=== PATIENT | male | born 1930 | race Caucasian/White ===

== ENCOUNTER 2017-02-22 07:07 | Inpatient (IN) ==
[2017-02-22] MEDS ORDERED: ASPIRIN 325 MG TABLET PO STA (07:25)
[2017-02-22] MEDS ORDERED: MORPHINE 2 MG/1 ML SYRINGE IV STA (07:25)
[2017-02-22] MEDS ORDERED: MORPHINE 2 MG/1 ML SYRINGE ONE (07:29)
[2017-02-22] MEDS ORDERED: MAGNESIUM SULF RIDER 4 GM in PREMIX 1 EACH IV PRN (10:27)
[2017-02-22] MEDS ORDERED: NITROGLYCERIN SL 0.4 MG TABLET SL ONE (10:27)
[2017-02-22] MEDS ORDERED: POTASSIUM CHLORIDE 20 MEQ TABLET PO PRN (10:27)
[2017-02-22] MEDS ORDERED: MAGNESIUM SULF RIDER 2 GM in PREMIX 1 EACH IV PRN (10:27)
[2017-02-22] MEDS ORDERED: MORPHINE 2 MG/1 ML SYRINGE IV PRN (10:27)
--- NOTE | 2017-02-22 10:27 | Emergency Department Note ---
Xiang Ruiz Manpreet, am scribing for, and in the presence of, Akira Orozco MD 07:28. Ernesto Ruiz Doug C, MD, personally performed the services described in this documentation, ascribed by Gerard Otoole in my presence, and it is both accurate and complete . Arrival - Arrival Chief Complaint: Chest Pain Stated Complaint: transfer from [facility] Mode of Arrival: Ambulatory Limitations: No Limitations Source: Patient, Significant other () Time Seen by Provider: 02/22/17 07:10 - History of Present Illness HPI Narrative: Patient is a 86-year-old white male transferred here from the [facility] for further evaluation of chest pain. Patient states the pain started yesterday around 7 PM but got intense around 3 AM. He went to the emergency room at [facility] around 4 AM this morning. Patient states some pain is sharp right-sided chest pain that is worse with deep breath. He has had a subjective fever at home he was febrile on arrival here. EKG [facility] revealed LVH by voltage criteria with downsloping ST segments in V5 and 6. There is no ST elevation in any lead. He has a slightly elevated troponin of 0.06 prior to transport. Patient tells me he does not have a history of coronary artery disease. According to his he went to [facility] and had clips placed in 1 of his valves. Onset (ago): hour(s) (at 1900 yesterday) Consistency: constant Severity: moderate, severe Severity scale (1-10): 7 Allergies/Adverse Reactions: Allergies Allergy/AdvReac Type Severity Reaction Status Date / Time doxycycline Allergy RASH Verified 02/22/17 07:20 latex Allergy RASH Verified 02/22/17 07:20 Home Medications: Home Medications Medication Instructions Recorded Confirmed Type Aloe Vera 25 mg PO QAM 08/12/16 02/22/17 History Aspirin [Ecotrin] 81 mg PO QAM 08/12/16 02/22/17 History Cyanocobalamin (Vitamin B-12) 1,000 mcg PO BID 08/12/16 02/22/17 History [Vitamin B-12] Fluticasone Propionate [Flonase 1 spray BOTH NARES QAM 08/12/16 02/22/17 History Allergy Relief] Furosemide 60 mg PO TID 08/12/16 02/22/17 History Metoprolol Succinate 25 mg PO QAM 08/12/16 02/22/17 History Montelukast Tab [Singulair Tab] 10 mg PO BEDTIME 08/12/16 02/22/17 History Multivitamin [One Daily] 1 each PO BEDTIME 08/12/16 02/22/17 History Nitroglycerin Sl Tab [Nitrostat] 0.4 mg SL Q5M PRN 08/12/16 02/22/17 History Oxybutynin Chloride [Oxybutynin 15 mg PO BEDTIME 08/12/16 02/22/17 History Chloride ER] Potassium Chloride 40 meq PO QAM 08/12/16 02/22/17 History Rabeprazole Sodium 20 mg PO QAM 08/12/16 02/22/17 History Thyroid,Pork [[place] Thyroid] 30 mg PO QAM 08/12/16 02/22/17 History Albuterol Sulfate 0.83 % RESP TX BID 08/13/16 02/22/17 History Iron 18 mg PO BID 08/13/16 02/22/17 History Lactobacillus Combo No.23 [Tyler 1 tablet PO BID 08/13/16 02/22/17 History Probiotic] Atorvastatin [Lipitor] 20 mg PO BEDTIME 02/22/17 02/22/17 History Isosorbide Mononitrate [Imdur] 30 mg PO QAM 02/22/17 02/22/17 History Review of System - Review of System 12 point system: reviewed and no additional remarkable complaints except as stated - Review of System Constitutional: Absent: chills, diaphoresis, fever Respiratory: Absent: cough, respiratory distress, wheezing Cardiovascular: Present: chest pain, other (Pleuritic chest pain) Gastrointestinal: Absent: abdominal pain, nausea, vomiting, diarrhea Genitourinary male: Absent: dysuria Musculoskeletal: Absent: arm pain, back pain, leg pain, neck pain Skin: Absent: rash, lesions Neurological: Absent: headache, weakness, numbness, paresthesias Psychiatric: Absent: anxiety, depression Endocrine: Absent: fatigue, polydipsia, polyuria Hematological/Lymphatic: Absent: easy bleeding Allergic/Immunologic: Absent: facial swelling Medical,Surgical,& Family Hx - Medical History Cardio: History of: Valvular Heart Disease Neurology: No history of: Seizures - Surgical History Cardiac Surgeries: Sugical HX of: Cardiac Surgery - Family History Family History: Reports;: Family Heart Disease - Social History Smoking Status: Former smoker Exam Vital Signs: Vital Signs Temperature 100.6 F H 02/22/17 07:07 Pulse Rate 89 02/22/17 07:07 Respiratory Rate 18 02/22/17 07:07 Blood Pressure 148/82 02/22/17 07:07 O2 Sat by Pulse Oximetry 98 02/22/17 07:11 - General General appearance: alert - Head Head exam: Present: atraumatic, normocephalic, normal inspection - Eye Eye exam: Present: normal appearance, PERRL, EOMI - ENT ENT exam: Present: normal exam, normal oropharynx, mucous membranes moist, TM's normal bilaterally - Neck Neck exam: Present: normal inspection, full ROM, trachea midline - Chest Chest inspection: Present: normal inspection, symmetric chest wall rise - Respiratory Respiratory exam: Present: normal lung sounds bilaterally, other (Pleuritic sporadic respirations). Absent: respiratory distress - Cardiovascular Cardiovascular exam: Present: regular rate, normal rhythm, normal heart sounds - Abdominal Exam Abdominal exam: Present: soft, tenderness (RUQ tenderness), normal bowel sounds - Extremities Exam Extremities exam: Present: normal inspection, full ROM - Back Exam Back exam: Present: normal inspection, full ROM - Neurological Exam Neurological exam: Present: alert, oriented X3, CN II-XII intact, reflexes normal - Psychiatric Psychiatric exam: Present: normal affect, normal mood - Skin Skin exam: Present: warm, dry, intact, normal color. Absent: pallor Course Course Narrative: Patient's clinical presentation, laboratory and radiograph findings were discussed with Dr. Riddle. Patient will be admitted to his services on the telemetry unit and cardiac isoenzymes continued. Results - Labs Lab Results: I have reviewed the patients labs Labs: Laboratory Tests 02/22/17 07:36 D-Dimer, Quantitative 1.0 Laboratory Tests 02/22/17 07:36 Troponin I 0.049 H Laboratory Tests 02/22/17 07:36 B-Natriuretic Peptide 2408 H - Diagnostic Findings Procedure: Chest x-ray: report reviewed by me (Cardiomegaly and mitral valve clips) Disposition Clinical Impression: Chest pain Case discussed with: patient, patient's family Disposition: Still a Patient Condition: Guarded Time of Disposition: 10:26
[2017-02-22] MEDS ORDERED: SODIUM CHLORIDE 0.45% 1,000 ML IV SCH (10:30)
[2017-02-22] MEDS ORDERED: NITROGLYCERIN SL 0.4 MG TABLET SL PRN ×2 (10:36→17:38)
--- NOTE | 2017-02-22 10:39 | Order Completion Report ---
See report scanned to EMR
--- NOTE | 2017-02-22 11:55 | Order Completion Report ---
See report scanned to EMR
--- NOTE | 2017-02-22 12:10 | Ultrasound Report ---
History: Chest pain. Evaluate for DVT Date: 02/22/2017 Study: Bilateral lower extremity color-flow venous Doppler study Comparison exam: No previous Color Doppler, wave form analysis, and compression analysis of the deep veins of both lower extremities from the common femoral vein level through the popliteal vein level shows that the veins are readily compressible. There is no abnormal intraluminal material to suggest thrombus. Waveform analysis is unremarkable. Ultrasound images were captured and archived Impression: No evidence of acute DVT PROCEDURE INTERPRETED AT [facility] DEPARTMENT OF RADIOLOGY Final Report Signed by: Dr. Sasha Kasper
[2017-02-22] MEDS: NITROGLYCERIN 2% OINT 1 INCH/GM PACK TOP SCH ×2 (12:58→18:54)
--- NOTE | 2017-02-22 13:56 | Order Completion Report ---
See report scanned to EMR
[2017-02-22] MEDS ORDERED: ENOXAPARIN 30 MG/0.3 ML SYRINGE SUBCUT SCH (14:30)
--- NOTE | 2017-02-22 17:46 | Cardiology Consult Note ---
Assessment and Plan - Time spent with patient Time spent with patient: Greater than 30 minutes (1) Pleuritic chest pain Status: Acute Assessment and plan: Given the pain is worse with deep breath and he overdid it yesterday with wheezing I suspicion is that this is musculoskeletal. Less likely could be pleural, particularly given the d-dimer elevation/PE. Even less likely this could be CAD, given his doss zone troponins Plan/records: trend troponins-if flat, I will call is not ACS Agree with morphine sulfate for some of the pain EKG q aM 3. So far, the EKG is not changing over time I discussed with the patient the benefits of stopping tobacco/nicotine, the problems with continuing to use it, and options of treatment. The patient is considering this option. Agree with Lovenox Agree with aspirin Lower extremity Dopplers I agree with VQ scan --would be helpful, particularly if negative Treat chest wall pain-tramadol, Tylenol, gabapentin Avoid NSAIDs because of his renal insufficiency Proton pump inhibitor Elevate head of bed I will follow along with. Thank you for allowing me to participate in this patient's care Current Visit: Yes (2) Chest wall pain Status: Acute Current Visit: Yes (3) Renal insufficiency Status: Acute Current Visit: Yes (4) Mitral regurgitation Status: Acute Current Visit: Yes (5) Status post implantation of mitral valve leaflet clip Status: Acute Current Visit: Yes (6) CAD (coronary artery disease) Status: Acute Current Visit: Yes History of Present Illness - Data of Consult Patient: known to practice within the last 3 years Consult date: 02/22/17 Requesting Physician: Akira Orozco - Consult Narrative Reason for consult: Evaluate chest pain, doss zone troponin History of present illness: Mr. Tyler is a 86 year old male PCP:? [employer]: Dr. Norbert Castelan 86-year-old man. Has had a mitral clip of his mitral valve sometime this past summer. It was for his MR. It was elected not to stent his two-vessel disease. Apparently was not very critical. He has been doing fairly well. However, yesterday he did much weed eating and probably strained his upper body. Today, about 2 AM, he began having chest pain. He came out of the blue. It is worse with a deep breath. Nitroglycerin 2 did not help. There is across the chest. Somewhat into his back. He came home when he was asleep. It is a sharp pain. His last for 12 hours. He is to continue to have it now. There is some associated shortness breath but no nausea diaphoresis. He came to emergency room. His troponins are doss zone. He was sent here for evaluation. No orthopnea, PND, edema, palpitations, syncope, cough, wheezing, or phlegm. Past medical history: Uses oral tobacco, chews tobacco Status post mitral clip for MR Apparently moderate CAD Chronic renal insufficiency, creatinine about 2.0 Elevated BNP, 2400 D-dimer elevation CC: Mandeep Riddle MD - Home Medications and Allergies Home Medications: Home Medications Medication Instructions Recorded Confirmed Type Aloe Vera 25 mg PO QAM 08/12/16 02/22/17 History Aspirin [Ecotrin] 81 mg PO QAM 08/12/16 02/22/17 History Cyanocobalamin (Vitamin B-12) 1,000 mcg PO BID 08/12/16 02/22/17 History [Vitamin B-12] Fluticasone Propionate [Flonase 1 spray BOTH NARES QAM 08/12/16 02/22/17 History Allergy Relief] Furosemide 60 mg PO TID 08/12/16 02/22/17 History Metoprolol Succinate 25 mg PO QAM 08/12/16 02/22/17 History Montelukast Tab [Singulair Tab] 10 mg PO BEDTIME 08/12/16 02/22/17 History Multivitamin [One Daily] 1 each PO BEDTIME 08/12/16 02/22/17 History Nitroglycerin Sl Tab [Nitrostat] 0.4 mg SL Q5M PRN 08/12/16 02/22/17 History Oxybutynin Chloride [Oxybutynin 15 mg PO BEDTIME 08/12/16 02/22/17 History Chloride ER] Potassium Chloride 40 meq PO QAM 08/12/16 02/22/17 History Rabeprazole Sodium 20 mg PO QAM 08/12/16 02/22/17 History Thyroid,Pork [[place] Thyroid] 30 mg PO QAM 08/12/16 02/22/17 History Albuterol Sulfate 0.83 % RESP TX BID 08/13/16 02/22/17 History Iron 18 mg PO BID 08/13/16 02/22/17 History Lactobacillus Combo No.23 [Tyler 1 tablet PO BID 08/13/16 02/22/17 History Probiotic] Atorvastatin [Lipitor] 20 mg PO BEDTIME 02/22/17 02/22/17 History Cholecalciferol (Vitamin D3) 1,000 unit PO BID 02/22/17 02/22/17 History [Vitamin D3] Isosorbide Mononitrate [Imdur] 30 mg PO QAM 02/22/17 02/22/17 History Allergies/Adverse Reactions: Allergies Allergy/AdvReac Type Severity Reaction Status Date / Time doxycycline Allergy RASH Verified 02/22/17 07:20 latex Allergy RASH Verified 02/22/17 07:20 12 point system: reviewed and no additional remarkable complaints except as stated (A 12 point review of systems is negative except for as mentioned in HPI. ) Medical,Surgical,& Family Hx - Medical History Cardio: History of: CHF, Hypertension, Valvular Heart Disease, Cardiovascular Problems Neurology: No history of: Seizures HEENT: History of: HEENT Problems (difficulty swallowing- esophagus dilated numerous times) Endocrine: History of: Dyslipidemia, Thyroid Disorder Respiratory: History of: COPD Genitourinary: History of: Bladder Problem, Prostate Problems Gastrointestinal: History of: GERD, GI Problems (constipation) Musculoskeletal: History of: Back/Neck Problems, Musculoskeletal Problems ( arthritis) - Surgical History Cardiac Surgeries: Sugical HX of: Cardiac Catheterization (august 2016), Cardiac Surgery Abdominal Surgeries: Surgical HX of: Colonoscopy, EGD Reproductive Surgeries: Surgical HX of;: Prostate Surgery (prostatectomy) - Family History Family History: Reports;: Family Cancer (brother), Family Heart Disease (sister x 2, brother), Family Hematology (sister), Family Hypertension (sister, brother , father), Family Stroke (mother, brother) Denies;: Family Anesthesia Reaction, Family Diabetes, Family Psychiatric Problems, Additional Family History - Social History Smoking Status: Former smoker Frequency of Alcohol Use: None Type of Drug Use: None Physical Examination Vital Signs Temp Pulse Resp BP Pulse Ox 100.6 F H 89 18 148/82 97 02/22/17 07:07 02/22/17 07:07 02/22/17 07:07 02/22/17 07:07 02/22/17 07:07 Exam: HEENT: Pupils equal, reactive to light and accommodation Neck: NoJVD or bruit Lungs clear to auscultation Heart: Regular rhythm rate with normal S1 and S2. Apical S4, 2/6 whole systolic murmur at the left lower sternal border radiating to apex. Abdomen: No hepatosplenomegaly Spine/extremities: No clubbing, cyanosis, or edema Neuro: Nonfocal Psych: No depression or anxiety Had some chest wall tenderness when he presented. Does not seem to be as tender now. Result/EKG - Labs Lab Results: I have reviewed the past 24 hour labs Labs: Laboratory Results - last 24 hr 02/22/17 02/22/17 02/22/17 07:36 07:36 07:36 D-Dimer, Quantitative 1.0 Troponin I 0.049 H B-Natriuretic Peptide 2408 H 02/22/17 02/22/17 11:05 13:53 D-Dimer, Quantitative Troponin I 0.047 H 0.038 B-Natriuretic Peptide - Diagnostic Findings Procedure: Chest x-ray: report reviewed by me - EKG EKG results: interpreted by me
[2017-02-22] MEDS: ACETAMINOPHEN 325 MG TABLET PO SCH (18:53)
[2017-02-22] MEDS: traMADol 50 MG TABLET PO SCH (18:54)
[2017-02-22] MEDS: GABAPENTIN 100 MG CAPSULE PO SCH ×2 (18:54→21:53)
[2017-02-22] MEDS ORDERED: ALBUTEROL NEB SOLN 5 MG/ML 20 ML/BOTTLE RESP TX SCH (21:00)
[2017-02-22] MEDS: CHOLECALCIFEROL 1,000 UNIT TABLET PO SCH (21:29)
[2017-02-22] MEDS: LACTOBACILLUS ACIDOPHILUS/BULGARICUS CAPLET PO SCH (21:29)
[2017-02-22] MEDS: CYANOCOBALAMIN 500 MCG TABLET PO SCH (21:29)
[2017-02-22] MEDS: MULTIVITAMIN (CENTRUM) TABLET PO SCH (21:29)
[2017-02-22] MEDS: OXYBUTYNIN XL 15 MG TABLET PO SCH (21:30)
[2017-02-22] MEDS: ATORVASTATIN 20 MG TABLET PO SCH (21:30)
[2017-02-22] MEDS: MONTELUKAST 10 MG TABLET PO SCH (21:30)
[2017-02-22] MEDS: METOPROLOL TARTRATE 25 MG TABLET PO SCH (21:31)
[2017-02-22] MEDS: FUROSEMIDE 20 MG TABLET PO SCH (21:57)
[2017-02-23] MEDS: NITROGLYCERIN 2% OINT 1 INCH/GM PACK TOP SCH ×4 (00:27→17:30)
[2017-02-23] MEDS: traMADol 50 MG TABLET PO SCH ×3 (05:08→20:50)
[2017-02-23] MEDS: ACETAMINOPHEN 325 MG TABLET PO SCH ×3 (05:08→20:50)
[2017-02-23 06:43] LABS: Calcium 9.7 MG/DL (8.5-10.1); Osmolality,Calculated 289.5 MOS/KG (273-304); Potassium 4.6 MMOL/L (3.5-5.1)
--- NOTE | 2017-02-23 07:59 | Order Completion Report ---
See report scanned to EMR
--- NOTE | 2017-02-23 08:13 | Cardiology History & Physical ---
Assessment and Plan (1) Pleuritic chest pain Status: Acute Assessment and plan: Given the pain is worse with deep breath and he overdid it yesterday with wheezing I suspicion is that this is musculoskeletal. Less likely could be pleural, particularly given the d-dimer elevation/PE. Even less likely this could be CAD, given his doss zone troponins Plan/records: trend troponins-if flat, I will call is not ACS Agree with morphine sulfate for some of the pain EKG q aM 3. So far, the EKG is not changing over time I discussed with the patient the benefits of stopping tobacco/nicotine, the problems with continuing to use it, and options of treatment. The patient is considering this option. Agree with Lovenox Agree with aspirin Lower extremity Dopplers I agree with VQ scan --would be helpful, particularly if negative Treat chest wall pain-tramadol, Tylenol, gabapentin Avoid NSAIDs because of his renal insufficiency Proton pump inhibitor Elevate head of bed I will follow along with. Thank you for allowing me to participate in this patient's care Current Visit: Yes (2) Chest wall pain Status: Acute Current Visit: Yes (3) Renal insufficiency Status: Acute Current Visit: Yes (4) Mitral regurgitation Status: Acute Current Visit: Yes (5) Status post implantation of mitral valve leaflet clip Status: Acute Current Visit: Yes (6) CAD (coronary artery disease) Status: Acute Current Visit: Yes History of Present Illness History of present illness: Mr. Tyler is a 86 year old male please see the cardiac consultation. Consultation was actually an H &P, as the patient was admitted to mt for Dr. Norbert Castelan. Home Medications Medication Instructions Recorded Confirmed Type Aloe Vera 25 mg PO QAM 08/12/16 02/22/17 History Aspirin [Ecotrin] 81 mg PO QAM 08/12/16 02/22/17 History Cyanocobalamin (Vitamin B-12) 1,000 mcg PO BID 08/12/16 02/22/17 History [Vitamin B-12] Fluticasone Propionate [Flonase 1 spray BOTH NARES QAM 08/12/16 02/22/17 History Allergy Relief] Furosemide 60 mg PO TID 08/12/16 02/22/17 History Metoprolol Succinate 25 mg PO QAM 08/12/16 02/22/17 History Montelukast Tab [Singulair Tab] 10 mg PO BEDTIME 08/12/16 02/22/17 History Multivitamin [One Daily] 1 each PO BEDTIME 08/12/16 02/22/17 History Nitroglycerin Sl Tab [Nitrostat] 0.4 mg SL Q5M PRN 08/12/16 02/22/17 History Oxybutynin Chloride [Oxybutynin 15 mg PO BEDTIME 08/12/16 02/22/17 History Chloride ER] Potassium Chloride 40 meq PO QAM 08/12/16 02/22/17 History Rabeprazole Sodium 20 mg PO QAM 08/12/16 02/22/17 History Thyroid,Pork [[place] Thyroid] 30 mg PO QAM 08/12/16 02/22/17 History Albuterol Sulfate 0.83 % RESP TX BID 08/13/16 02/22/17 History Iron 18 mg PO BID 08/13/16 02/22/17 History Lactobacillus Combo No.23 [Tyler 1 tablet PO BID 08/13/16 02/22/17 History Probiotic] Atorvastatin [Lipitor] 20 mg PO BEDTIME 02/22/17 02/22/17 History Cholecalciferol (Vitamin D3) 1,000 unit PO BID 02/22/17 02/22/17 History [Vitamin D3] Isosorbide Mononitrate [Imdur] 30 mg PO QAM 02/22/17 02/22/17 History Allergies Allergy/AdvReac Type Severity Reaction Status Date / Time doxycycline Allergy RASH Verified 02/22/17 07:20 latex Allergy RASH Verified 02/22/17 07:20 Medical,Surgical,& Family Hx - Medical History Cardio: History of: CHF, Hypertension, Valvular Heart Disease, Cardiovascular Problems Neurology: No history of: Seizures HEENT: History of: HEENT Problems (difficulty swallowing- esophagus dilated numerous times) Endocrine: History of: Dyslipidemia, Thyroid Disorder Respiratory: History of: COPD Genitourinary: History of: Bladder Problem, Prostate Problems Gastrointestinal: History of: GERD, GI Problems (constipation) Musculoskeletal: History of: Back/Neck Problems, Musculoskeletal Problems ( arthritis) - Surgical History Cardiac Surgeries: Sugical HX of: Cardiac Catheterization (august 2016), Cardiac Surgery Abdominal Surgeries: Surgical HX of: Colonoscopy, EGD Reproductive Surgeries: Surgical HX of;: Prostate Surgery (prostatectomy) - Family History Family History: Reports;: Family Cancer (brother), Family Heart Disease (sister x 2, brother), Family Hematology (sister), Family Hypertension (sister, brother , father), Family Stroke (mother, brother) Denies;: Family Anesthesia Reaction, Family Diabetes, Family Psychiatric Problems, Additional Family History - Social History Smoking Status: Former smoker Frequency of Alcohol Use: None Type of Drug Use: None Cardiology Physical Exam - Constitutional Vitals: Vital Signs Temp Pulse Resp BP Pulse Ox 98 F 70 18 123/57 97 02/23/17 07:59 02/23/17 07:59 02/23/17 07:59 02/23/17 07:59 02/23/17 07:59 Intake and Output 02/22/17 02/23/17 02/23/17 23:59 07:59 15:59 Intake Total 450 / 450 Output Total 480 / 480 150 / 150 Balance -30 / -30 -150 / -150 Intake: Oral 450 / 450 Output: Urine 480 / 480 150 / 150 Other: Voiding Method Toilet Urinal # Voids 1 # Bowel Movements 0 Weight 54.601 kg Patient Weight 02/23/17 23:59 Weight 54.601 kg Result/EKG - Labs CBC & BMP: 02/23/17 04:52 Labs: Laboratory Results - last 24 hr 02/22/17 02/22/17 02/22/17 07:36 07:36 11:05 Sodium Potassium Chloride Carbon Dioxide Anion Gap BUN Creatinine GFR Calculation BUN/Creatinine Ratio Glucose Calculated Osmolality Calcium Troponin I 0.049 H 0.047 H B-Natriuretic Peptide 2408 H 02/22/17 02/22/17 02/23/17 13:53 17:21 04:52 Sodium 139 Potassium 4.6 Chloride 102 Carbon Dioxide 28 Anion Gap 13.6 BUN 49 H Creatinine 2.50 H GFR Calculation 22 BUN/Creatinine Ratio 19.00 Glucose 95 Calculated Osmolality 289.5 Calcium 9.7 Troponin I 0.038 0.050 H D B-Natriuretic Peptide
--- NOTE | 2017-02-23 08:29 | XRay Report ---
History: Shortness of breath Date: 02/23/2017 Study: Chest x-ray AP portable Comparison exam: 02/22/2017 outside chest x-ray There is mild cardiomegaly. The pulmonary vasculature is slightly prominent. There is some increasing patchy and hazy airspace disease in the lower lobes bilaterally. There is some mild platelike atelectasis in the right lower lobe. There is probable trace bilateral pleural effusion. Osseous structures are similar. Impression: Increasing bibasilar pulmonary edema/infiltrate and trace pleural effusion compared to the previous study. PROCEDURE INTERPRETED AT [facility] DEPARTMENT OF RADIOLOGY Final Report Signed by: Dr. Sasha Kasper
--- NOTE | 2017-02-23 08:33 | Nuclear Medicine Report ---
History: Chest pain. Evaluate for pulmonary embolic disease. Elevated d-dimer Date: 02/23/2017 Study: Nuclear medicine ventilation/perfusion lung scan Comparison exam: Chest x-ray 02/23/2017 Following the inhalation of 40 mCi aerosolized technetium 99m DTPA, images were obtained over the lungs in 6 projections for the purpose of a ventilation study. Then, following the IV administration of 5 mCi technetium 99m MAA, images were acquired of the lungs in the same projections for the purpose of a perfusion scan. There is no moderate or large unmatched segmental perfusion defect within either lung. There are some matched small to moderate areas of decreased ventilation perfusion involving multiple basilar segments of the left lower lobe more so than the right lower lobe as well as the inferior aspect of the lingula and right middle lobe. There are corresponding infiltrates in the lung bases on the current chest x-ray. This would be low probability using Gestalt analysis and intermediate probability using revised PIOPED analysis. Impression: Low to intermediate probability lung scan for pulmonary embolic disease PROCEDURE INTERPRETED AT [facility] DEPARTMENT OF RADIOLOGY Final Report Signed by: Dr. Sasha Kasper
[2017-02-23] MEDS: IRON 18 MG PO SCH ×2 (08:59→09:13)
[2017-02-23] MEDS ORDERED: POTASSIUM CHLORIDE 20 MEQ TABLET PO SCH (09:00)
[2017-02-23] MEDS: CYANOCOBALAMIN 500 MCG TABLET PO SCH ×2 (09:03→20:50)
[2017-02-23] MEDS: FLUTICASONE 50 MCG NASAL SPRAY 16 GM BOTTLE BOTH NARES SCH (09:03)
[2017-02-23] MEDS: PANTOPRAZOLE 40 MG TABLET PO SCH (09:04)
[2017-02-23] MEDS: FUROSEMIDE 20 MG TABLET PO SCH (09:04)
[2017-02-23] MEDS: LACTOBACILLUS ACIDOPHILUS/BULGARICUS CAPLET PO SCH ×2 (09:04→20:50)
[2017-02-23] MEDS: THYROID 60 MG TABLET PO SCH (09:05)
[2017-02-23] MEDS: ASPIRIN EC 325 MG TABLET PO SCH (09:05)
[2017-02-23] MEDS: ISOSORBIDE MONONITRATE 30 MG TABLET PO SCH (09:05)
[2017-02-23] MEDS: POTASSIUM CHLORIDE 20 MEQ TABLET PO SCH ×2 (09:06→20:49)
[2017-02-23] MEDS: GABAPENTIN 100 MG CAPSULE PO SCH ×3 (09:06→20:50)
[2017-02-23] MEDS: METOPROLOL TARTRATE 25 MG TABLET PO SCH ×2 (09:06→20:51)
[2017-02-23] MEDS: CHOLECALCIFEROL 1,000 UNIT TABLET PO SCH ×2 (09:13→20:50)
[2017-02-23] MEDS: Aloe Vera [Aloe Vera] 25 MG PO SCH (09:13)
--- NOTE | 2017-02-23 09:29 | Order Completion Report ---
See report scanned to EMR
--- NOTE | 2017-02-23 10:40 | Cardiology Progress Note ---
Assessment and Plan (1) Pleuritic chest pain Status: Acute Assessment and plan: Given the pain is worse with deep breath and he overdid it yesterday with wheezing I suspicion is that this is musculoskeletal. Less likely could be pleural, particularly given the d-dimer elevation/PE. Even less likely this could be CAD, given his doss zone troponins Plan/records: trend troponins-if flat, I will call is not ACS Agree with morphine sulfate for some of the pain EKG q aM 3. So far, the EKG is not changing over time I discussed with the patient the benefits of stopping tobacco/nicotine, the problems with continuing to use it, and options of treatment. The patient is considering this option. Agree with Lovenox Agree with aspirin Lower extremity Dopplers I agree with VQ scan --would be helpful, particularly if negative Treat chest wall pain-tramadol, Tylenol, gabapentin Avoid NSAIDs because of his renal insufficiency Proton pump inhibitor Elevate head of bed I will follow along with. Thank you for allowing me to participate in this patient's care 02/23/17 I do not believe his chest pain is an UT or ACS. Troponins are flat. With him having a 3 component friction rub, noted today but not yesterday, I believe it is acute pericarditis With his rising creatinine I cannot use an NSAID. We will add some prednisone and colchicine for the pericarditis His VQ scan is low to intermediate probability. It is concerning for him possibly having concurrent PE-?. Will consult Dr. Zafar Goff, his greige goods marker and get his opinion I would be reluctant about doing a CTA of the chest/pulmonary arteries with his rising creatinine. If Dr. Zafar Santos thinks it is unlikely to be PE we can stop there. Hold Lovenox to help reduce his risk of having progression of the pericarditis to hemorrhagic pericarditis. Might consider restarting it once the friction rub is gone. BMP every morning to watch renal function-- Change him to a full admit-with these occurring above, he is at least at intermediate risk of having major problems, such as worsening renal failure, a PE, hemorrhagic pericarditis, etc. We will get an echo/Doppler to evaluate his pericarditis We will hold his Lasix. We will not give more fluids because of his elevated BNP raise question of heart failure Prognosis is guarded. Current Visit: Yes (2) Chest wall pain Status: Acute Current Visit: Yes (3) Renal insufficiency Status: Acute Current Visit: Yes (4) Mitral regurgitation Status: Acute Current Visit: Yes (5) Status post implantation of mitral valve leaflet clip Status: Acute Current Visit: Yes (6) CAD (coronary artery disease) Status: Acute Current Visit: Yes (7) Acute pericarditis Status: Acute Current Visit: Yes (8) Acute on chronic renal failure Status: Acute Current Visit: Yes (9) Abnormal lung scan Status: Acute Current Visit: Yes Cardiology - PN: Subj Interval history: Still has back pain when he takes deep breath. However does not have the anterior chest pain. Exam (Progress Note) - Constitutional Vitals: Period Temp Pulse Resp BP Sys/Braga Pulse Ox Last 24 Hr 98 F-100.3 F 63-83 16-20 100-139/50-67 94-100 Exam: ,HEENT: Pupils equal, reactive to light and accommodation Neck: NoJVD or bruit Lungs clear to auscultation Heart: Regular rhythm rate with normal S1 and S2. Apical S4 ; 3 component friction rub best heard along left lower sternal border.this was not present yesterday. Abdomen: No hepatosplenomegaly Spine/extremities: No clubbing, cyanosis, or edema Neuro: Nonfocal Psych: No depression or anxiety Result/EKG - Labs CBC & BMP: 02/23/17 04:52 Lab Results: I have reviewed the past 24 hour labs Labs: Laboratory Results - last 24 hr 02/22/17 02/22/17 02/22/17 11:05 13:53 17:21 Sodium Potassium Chloride Carbon Dioxide Anion Gap BUN Creatinine GFR Calculation BUN/Creatinine Ratio Glucose Calculated Osmolality Calcium Troponin I 0.047 H 0.038 0.050 H D 02/23/17 04:52 Sodium 139 Potassium 4.6 Chloride 102 Carbon Dioxide 28 Anion Gap 13.6 BUN 49 H Creatinine 2.50 H GFR Calculation 22 BUN/Creatinine Ratio 19.00 Glucose 95 Calculated Osmolality 289.5 Calcium 9.7 Troponin I - Diagnostic Findings Procedure: X-ray: report reviewed by me (VQ scan is low to intermediate probability) - EKG EKG results: interpreted by me
[2017-02-23] MEDS: predniSONE 50 MG TABLET PO SCH (11:07)
[2017-02-23] MEDS: COLCHICINE 0.6 MG TABLET PO SCH ×2 (11:07→20:50)
[2017-02-23] MEDS: ALBUTEROL 0.63 MG/3 ML NEB RESP TX SCH ×2 (12:57→19:52)
--- NOTE | 2017-02-23 15:45 | Order Completion Report ---
See report scanned to EMR
[2017-02-23] MEDS ORDERED: FUROSEMIDE 20 MG/2 ML VIAL IV SCH (16:00)
--- NOTE | 2017-02-23 16:39 | Pulmonology Consult Note ---
History of Present Illness Chief complaint: Anterior lower chest and upper abdominal pain. MR. OJEDA AI History of present illness: Mr. Tyler is a 86 year old white male been asked to see in pulmonary consultation. I have seen this patient in my office recently and slightly before that he saw Dr. Mina Castelan in pulmonary follow up. When I saw the patient in my office recently he was in congestive heart failure. I upped his Lasix to 60 mg p.o. 3 times daily saw him back in about a week. His heart failure had resolved and he felt fine. The day prior to this admission he spent a lot of time with his weedeater and did a lot of work. Later on he developed pain described above. It sounds musculoskeletal. He was concerned enough that he came to the emergency room he was subsequently admitted. He now says he feels better. The patient denies reflux. He has had some mild orthopnea. He denies cough and wheeze and hemoptysis. The remainder the review of systems is negative. Allergies. Doxycycline and latex. Home medicines. P.o. B12. Flonase nasal spray. Lasix 60 mg p.o. 3 times daily. Metoprolol tartrate 5 mg every morning. Singulair 10 mg daily. Multivitamin once a day. Nitroglycerin sublingual. Oxybutynin 15 mg once a day. KCl 40 mEq daily.raberprazole. [place] Thyroid 30 mg daily. Nebulizer with albuterol. Iron 18 mg p.o. twice daily. Negative probiotic 1 twice daily. Lipitor 20 mg daily. Vitamin D3 1000 units p.o. twice daily. Imdur 30 mg daily Past history. This patient has at least 2 vessel coronary artery disease. He has severe mitral regurgitation. He has significant aortic stenosis and he has aortic insufficiency. He recently went to [facility] where he had 2 clips placed on his mitral valve. Will follow up with Dr. Castelan his echocardiogram showed severe mitral regurgitation and same aortic lesions as before. Patient was in my office recently with congestive heart failure. COPD. Asthma. Hypothyroidism. Hyperlipidemia. History of urinary bladder and prostate problems. Degenerative joint disease. Previous prostatectomy. Social history patient is a former smoker and I think he just chews tobacco. He denies alcohol Family history. 2 sisters and a brother had heart disease. Brother had cancer. There is a family history of high blood pressure and stroke. Doppler venograms of the lower extremities. 02/22/2017. No evidence of deep venous thrombophlebitis. Ventilation/perfusion lung scan. 02/23/2007 I have reviewed the scan and I see nothing to suggest pulmonary emboli. Chest x-ray. Cardiomegaly. Engorged central vasculature. Interstitial edema in both lower lungs. Small amount of bilateral pleural effusion. Echocardiogram. 02/23/2017. Moderate concentric left ventricular hypertrophy. Ejection fraction is 15-20% in the parasternal long view and in the apical view it is 30-40%. There is a mildly to moderately dilated left atrium. There is [id number], +3 mitral regurgitation present. Mild aortic regurgitation is noted. (Note that this patient has a history of significant aortic stenosis). Moderately enlarged right atrium and right ventricle. Microbiology. No results reported Lab. Natruretic peptide is elevated 2408. Troponin is 0.05. Electrolytes are normal. Creatinine is 2.50 with a BUN of 49 which is about the patient's normal range. Glucoses are 95. Physical exam. Vital signs. See below General. No significant distress. Lying in bed. Psychiatric. Oriented 3. Neurologic. Cranial nerves are intact with marked bilateral decreased hearing acuity. Long track motor function is intact. Gait is a little unsteady but within the normal range. Sensory exam was not done. Face symmetrical with no lip or tongue edema Neck. Symmetrical no meningismus or mass. Thyroid was not palpated. Lymphatics. No submandibular cervical supraclavicular or epitrochlear adenopathy Chest. Clear with decreased inspiratory excursion. Heart. Lateral PMI grade 1.5 over 6 systolic ejection murmur at the left sternal border. Separate murmur is heard above the aortic valve. Abdomen. I can elicit no tenderness. Bowel sounds are present Lower extremities. No deep venous thrombophlebitis Musculoskeletal. Age-appropriate loss normal curvature cervical thoracic and lumbar spine. Degenerative changes of the hands and knees Skin of the face and hands show no cancerous infectious lesions. No other areas of skin were examined. Lymphatics. No submandibular cervical supraclavicular or epitrochlear adenopathy. The remainder the physical exam is negative Impression. 1. Heart disease with decreased cardiac output. I suspect the effective cardiac output is even more diminished secondary to mitral regurgitation and aortic insufficiency. 2. Severe mitral regurgitation. 2 clips were recently placed at [facility] in [place] 3. History of severe aortic stenosis with mild to moderate aortic insufficiency #4 acute on chronic congestive heart failure 5. Chronic renal failure 6. COPD/asthma. Good control 7. Degenerative joint disease. 8. Hypothyroidism 9. See past history Plan. 1. We will change Lasix to 60 IV push every 8 hours until tomorrow morning and then will go back to 60 p.o. 3 times daily 2. Repeat chest x-ray in the morning 3. BMP in the morning. Patient's BNP is habitually high 4. Unless something else comes up I think this patient would be ready for discharge tomorrow Home Medications Medication Instructions Recorded Confirmed Type Aloe Vera 25 mg PO QAM 08/12/16 02/22/17 History Aspirin [Ecotrin] 81 mg PO QAM 08/12/16 02/22/17 History Cyanocobalamin (Vitamin B-12) 1,000 mcg PO BID 08/12/16 02/22/17 History [Vitamin B-12] Fluticasone Propionate [Flonase 1 spray BOTH NARES QAM 08/12/16 02/22/17 History Allergy Relief] Furosemide 60 mg PO TID 08/12/16 02/22/17 History Metoprolol Succinate 25 mg PO QAM 08/12/16 02/22/17 History Montelukast Tab [Singulair Tab] 10 mg PO BEDTIME 08/12/16 02/22/17 History Multivitamin [One Daily] 1 each PO BEDTIME 08/12/16 02/22/17 History Nitroglycerin Sl Tab [Nitrostat] 0.4 mg SL Q5M PRN 08/12/16 02/22/17 History Oxybutynin Chloride [Oxybutynin 15 mg PO BEDTIME 08/12/16 02/22/17 History Chloride ER] Potassium Chloride 40 meq PO QAM 08/12/16 02/22/17 History Rabeprazole Sodium 20 mg PO QAM 08/12/16 02/22/17 History Thyroid,Pork [[place]so Thyroid] 30 mg PO QAM 08/12/16 02/22/17 History Albuterol Sulfate 0.83 % RESP TX BID 08/13/16 02/22/17 History Iron 18 mg PO BID 08/13/16 02/22/17 History Lactobacillus Combo No.23 [Tyler 1 tablet PO BID 08/13/16 02/22/17 History Probiotic] Atorvastatin [Lipitor] 20 mg PO BEDTIME 02/22/17 02/22/17 History Cholecalciferol (Vitamin D3) 1,000 unit PO BID 02/22/17 02/22/17 History [Vitamin D3] Isosorbide Mononitrate [Imdur] 30 mg PO QAM 02/22/17 02/22/17 History Allergies Allergy/AdvReac Type Severity Reaction Status Date / Time doxycycline Allergy RASH Verified 02/22/17 07:20 latex Allergy RASH Verified 02/22/17 07:20 Exam (Pulmonay) H&P - Constitutional Vitals: Period Temp Pulse Resp BP Sys/Braga Pulse Ox Last 24 Hr 98 F-100.3 F 62-79 15-20 87-123/49-58 90-98 Medical,Surgical,& Family Hx - Medical History Cardio: History of: CHF, Hypertension, Valvular Heart Disease, Cardiovascular Problems Neurology: No history of: Seizures HEENT: History of: HEENT Problems (difficulty swallowing- esophagus dilated numerous times) Endocrine: History of: Dyslipidemia, Thyroid Disorder Respiratory: History of: COPD Genitourinary: History of: Bladder Problem, Prostate Problems Gastrointestinal: History of: GERD, GI Problems (constipation) Musculoskeletal: History of: Back/Neck Problems, Musculoskeletal Problems ( arthritis) - Surgical History Cardiac Surgeries: Sugical HX of: Cardiac Catheterization (august 2016), Cardiac Surgery Abdominal Surgeries: Surgical HX of: Colonoscopy, EGD Reproductive Surgeries: Surgical HX of;: Prostate Surgery (prostatectomy) - Family History Family History: Reports;: Family Cancer (brother), Family Heart Disease (sister x 2, brother), Family Hematology (sister), Family Hypertension (sister, brother , father), Family Stroke (mother, brother) Denies;: Family Anesthesia Reaction, Family Diabetes, Family Psychiatric Problems, Additional Family History - Social History Smoking Status: Former smoker Frequency of Alcohol Use: None Type of Drug Use: None Results - Labs CBC & BMP: 02/23/17 04:52
[2017-02-23] MEDS: FUROSEMIDE 20 MG/2 ML VIAL IV SCH ×2 (16:51→18:32)
[2017-02-23] MEDS ORDERED: FUROSEMIDE 20 MG TABLET PO SCH (18:00)
[2017-02-23] MEDS: FE C PO SCH (20:49)
[2017-02-23] MEDS: MONTELUKAST 10 MG TABLET PO SCH (20:50)
[2017-02-23] MEDS: OXYBUTYNIN XL 15 MG TABLET PO SCH (20:50)
[2017-02-23] MEDS: MULTIVITAMIN (CENTRUM) TABLET PO SCH (20:54)
[2017-02-23] MEDS: ATORVASTATIN 20 MG TABLET PO SCH (20:54)
[2017-02-24] MEDS: NITROGLYCERIN 2% OINT 1 INCH/GM PACK TOP SCH ×2 (00:39→06:10)
[2017-02-24] MEDS: ALBUTEROL 0.63 MG/3 ML NEB RESP TX SCH ×4 (00:51→19:28)
[2017-02-24 05:24] LABS: Basophils % 0.1 % (0.0-0.8); Hematocrit 35.2 VOL% (42.0-52.0); Hemoglobin 11.6 GM/DL (14.0-18.0); Immature Granulocytes % 0.5 %; Immature Granulocytes Absolute 0.05 #; Lymphocytes # 0.6 10*3/uL (1.4-4.0); Lymphocytes % 6.3 % (21.2-54.2); Mean Corpuscular Hemoglobin 30 PG (27-34); Mean Corpuscular Volume 90.7 FL (87-102); Mean Platelet Volume 11.3 FL (9.6-12.0); Monocytes # 0.6 10*3/uL (0.11-0.8); Monocytes % 6.1 % (1.7-12.7); Neutrophils # 8.2 10*3/uL (1.4-7.4); Platelet Count 151 T/CUMM (130-400); Red Blood Count 3.88 MC/CUMM (3.8-5.5); Red Cell Distribution Width 13.3 % (9.3-17.3); White Blood Count 9.4 T/CUMM (4-12)
[2017-02-24 05:48] LABS: Calcium 9.6 MG/DL (8.5-10.1); Osmolality,Calculated 283.7 MOS/KG (273-304); Potassium 5.5 MMOL/L (3.5-5.1)
[2017-02-24] MEDS ORDERED: FUROSEMIDE 20 MG TABLET PO SCH (06:00)
[2017-02-24 06:03] LABS: Calcium 8.9 MG/DL (8.5-10.1); Magnesium 2.8 MG/DL (1.8-2.4); Osmolality,Calculated 285.7 MOS/KG (273-304); Potassium 5.6 MMOL/L (3.5-5.1)
--- NOTE | 2017-02-24 07:27 | Order Completion Report ---
See report scanned to EMR
[2017-02-24] MEDS: POTASSIUM CHLORIDE 20 MEQ TABLET PO SCH (09:03)
--- NOTE | 2017-02-24 09:11 | XRay Report ---
XR chest 2V Date: 02/24/2017 4:00 AM History: Congestive heart failure Comparison: 02/23/2017 Technique: PA and lateral chest Findings: The heart is minimally enlarged with diffuse arterial calcifications. Reduced parenchymal findings with smaller pleural effusions. Stable metallic densities in the heart, mediastinum, and osseous structures. Impression: Improved CHF with smaller pleural effusions. PROCEDURE INTERPRETED AT [facility] DEPARTMENT OF RADIOLOGY Final Report Signed by: Dr. Suellen Gavin
[2017-02-24] MEDS: Aloe Vera [Aloe Vera] 25 MG PO SCH (09:46)
[2017-02-24] MEDS: FE C PO SCH ×2 (09:47→22:00)
[2017-02-24] MEDS: THYROID 60 MG TABLET PO SCH (09:47)
[2017-02-24] MEDS: ACETAMINOPHEN 325 MG TABLET PO SCH ×2 (09:47→22:11)
[2017-02-24] MEDS: PANTOPRAZOLE 40 MG TABLET PO SCH (09:48)
[2017-02-24] MEDS: GABAPENTIN 100 MG CAPSULE PO SCH ×3 (09:48→22:20)
[2017-02-24] MEDS: ISOSORBIDE MONONITRATE 30 MG TABLET PO SCH (09:48)
[2017-02-24] MEDS: COLCHICINE 0.6 MG TABLET PO SCH (09:48)
[2017-02-24] MEDS: predniSONE 50 MG TABLET PO SCH (09:48)
[2017-02-24] MEDS: METOPROLOL TARTRATE 25 MG TABLET PO SCH ×2 (09:48→22:09)
[2017-02-24] MEDS: CHOLECALCIFEROL 1,000 UNIT TABLET PO SCH ×2 (09:48→22:11)
[2017-02-24] MEDS: LACTOBACILLUS ACIDOPHILUS/BULGARICUS CAPLET PO SCH ×2 (09:48→22:10)
[2017-02-24] MEDS: traMADol 50 MG TABLET PO SCH ×2 (09:48→22:10)
[2017-02-24] MEDS: ASPIRIN EC 325 MG TABLET PO SCH (09:48)
[2017-02-24] MEDS: FLUTICASONE 50 MCG NASAL SPRAY 16 GM BOTTLE BOTH NARES SCH (09:49)
[2017-02-24] MEDS: CYANOCOBALAMIN 500 MCG TABLET PO SCH ×2 (09:53→22:09)
[2017-02-24] MEDS ORDERED: DEXTROSE 5% NACL 0.9% 1,000 ML IV SCH (10:30)
[2017-02-24] MEDS: ONDANSETRON 4 MG/2 ML VIAL IV PRN ×2 (11:38→23:21)
--- NOTE | 2017-02-24 13:01 | Pulmonology Progress Note ---
Pulmonary - PN: Subj Interval history: Isai Mendez, ESPINOZABLANCA-, acting as scribe for Dr. Naveen Santos Mr. Tyler is an 86-year-old white male who is on initial pulmonary consultation 02/23/2017. At that time, our impressions were: 1. Heart disease with decreased cardiac output. I suspect the effective cardiac output is even more diminished secondary to mitral regurgitation and aortic insufficiency. 2. Severe mitral regurgitation. 2 clips were recently placed at [facility] in [place] 3. History of severe aortic stenosis with mild to moderate aortic insufficiency 4. Acute on chronic congestive heart failure 5. Chronic renal failure 6. COPD/asthma. Good control 7. Degenerative joint disease. 8. Hypothyroidism 9. See past history 02/24/2017. The patient was seen today along with his . He reports is breathing better since being diuresed. However, with the increased dose of Lasix his creatinine has now risen to 3.40. We stopped his Lasix for today and will start D5 normal saline at 50 mL/h for 5 hours. Repeat BMP has been ordered for tomorrow. Medications have been reviewed. Labs been reviewed. White count is 9400 with 87.0% segs; H&H 11.6/35.2; platelet count 151,000; creatinine 3.40, BUN 65, sodium 131, potassium 5.5, magnesium 2.8; BNP 1991 Exam (Progress Note) - Constitutional Vitals: Period Temp Pulse Resp BP Sys/Braga Pulse Ox Last 24 Hr 96.7 F-99.2 F 63-73 15-20 99-112/50-74 93-99 Exam: Chest is fairly clear, but with decreased inspiratory excursion Heart with a lateral PMI and a grade 1.5/6 systolic ejection murmur left sternal border; there is a separate murmur that is heard above the aortic valve Abdomen is nontender and nondistended; bowel sounds are positive 4 Extremities with nothing to suggest acute deep venous femoral phlebitis Psychiatric oriented 3 presently, although his reports that the patient had confusion through the night Neurologic unchanged Plan: Stop Lasix for today. Start D5 normal saline at 50 mL/h for 5 hours. Repeat BMP/magnesium in the morning. See orders. Results - Labs CBC & BMP: 02/24/17 05:05 02/24/17 05:05 Specialty Discharge - Follow Up or Referrals
[2017-02-24] MEDS ORDERED: predniSONE 20 MG TABLET PO SCH (13:38)
--- NOTE | 2017-02-24 13:45 | Cardiology Progress Note ---
I, Sasha Mckeon RN, am scribing for, and in the presence of, Saad Powell MD 13 :44. Assessment and Plan - Time spent with patient Time spent with patient: Greater than 30 minutes Time spent discussing smoking cessation with patient: 3 to 10 minutes (1) Chest pain Status: Acute Assessment and plan: 86-year-old WM, PMHx HTN, severe MR and CAD now s/p MV clip and coronary stents at [facility]. Also has moderate AR, severe pulm HTN. Now admitted with chest wall pain. ACS and PE/DVT ruled out. Echo: EF 20-25% range, mod NIDA, mod to severe TR EKG: SR, HR 70s -Severe MR, s/p Mitraclip. Echo shows still quite severe MR, ejection fraction remained around 20%. No pericardial effusion. -Renal consult. ESTEPHANIE, hyperkalemia. Remained quite oliguric, despite diuretics. Bladder scan. There was no hypotension or other suggestion of hemodynamic compromise -Chest pain. Pericardial rub was suspected yesterday, today, I had only some pleural friction on the left side. Continue prednisone, stopped the colchicine due to worsening creatinine -D-dimer was mildly elevated, no DVT. VQ scan was low to moderate probability. No evidence of pulmonary hypertension on echo. Going to hold off anticoagulation at this time. Current Visit: Yes (2) Hypertension Status: Chronic Current Visit: Yes (3) Hyperkalemia Status: Acute Assessment and plan: See Impression/Plan Above. Current Visit: Yes (4) Hypothyroid Status: Chronic Current Visit: Yes (5) Hyperlipidemia Status: Chronic Assessment and plan: See Impression/Plan Above. Current Visit: Yes (6) Cardiomyopathy Status: Chronic Assessment and plan: See Impression/Plan Above. Current Visit: Yes (7) Acute on chronic renal failure Status: Chronic Assessment and plan: See Impression/Plan Above. Current Visit: Yes (8) CAD (coronary artery disease) Status: Chronic Assessment and plan: See Impression/Plan Above. Current Visit: Yes (9) Mitral regurgitation Status: Chronic Assessment and plan: See Impression/Plan Above. Current Visit: Yes (10) Status post implantation of mitral valve leaflet clip Status: Chronic Assessment and plan: See Impression/Plan Above. Current Visit: Yes Cardiology - PN: Subj Interval history: Hydrogenation Operator: Dr. Castelan Summary: 86-year-old WM, PMHx HLD, HTN,, severe MR, COPD, hypothyroidism, chronic renal insufficiency, former tobacco use. Per [facility] by Dr. Castelan in August 2016, has 2 vessel CAD. Now status post coronary stent at [facility] at same time he had mitral valve clip for MVP. Chronic anemia with history of varices requiring several transfusions, follows routinely with Dr. Valenzuela. Post MV clip, continues to have significant mitral regurg as well as moderate aortic regurgitation, appears to have small PFO/ASD. Severe pulm HTN with PAP 60-65 mmHg. Now admitted to [facility] telemetry to cardiology service after transferring from [facility] with complaints of chest pain worse with inspiration. The day leading up to admission, he spent a lot of time outdoors and significant physical exertion. Afterward, he developed a left and right sided chest pain, and he was concerned it was cardiac related. Mildly orthopneic, BNP 2400 and creatinine 2.5 on admit (1.9 in clinic on 02/06). Lasix dosage was recently increased by pulmonary during clinic visit, and patient had improvement of CHF symtpoms. Elevated d-dimer, subsequent VQ lung scan low to intermediate probability for PE. Venous doppler of BLEs negative for DVT. Echo on 02/23 with mod LVH. Overall EF 20-25% range. Febrile on admission. Improved now. February 24, 2017: Sitting up in bedside chair this morning. present. Feels much better today , requesting to go home. Dr. Santos saw in pulmonary consultation yesterday. Note reviewed. Patient denies dyspnea, orthopnea, not requiring supplemental O2. No lower ext edema. Denies further chest discomfort. No reproducible tenderness. Feels this is musculoskeletal due to him "sleeping on the wrong side at times". Labs reviewed. Hyperkalemic, 5.5. Hypermagnesemic, 2.8. Slightly worsened creatinine 3.4 (2.5 previously). BNP 1989. SBP 100-110 mmHg. Tele: SR, HR 70s. Chest x-ray this morning with improvement of CHF and improvement of pleural effusion. ROS: -denies chest pain, palpitations, orthopnea -denies dyspnea. admits nonproductive cough -denies abd pain, N/V. appetite is fair Exam (Progress Note) - Constitutional Vitals: Period Temp Pulse Resp BP Sys/Braga Pulse Ox Last 24 Hr 98 F-99.2 F 62-73 15-20 87-112/49-74 90-99 General appearance: no acute distress, under weight - Head Head exam: Present: normal inspection. Absent: abrasion, contusion, hematoma - Eye Eye exam: Present: EOMI. Absent: periorbital swelling, laceration to eyelids Pupils: Present: HASMUKH. Absent: dilated - ENT ENT exam: Present: normal external ear exam - Neck Neck exam: Absent: tenderness - Respiratory Respiratory exam: Present: clear to auscultation bilaterally. Absent: rales, rhonchi, stridor, wheezes - Cardiovascular Cardiovascular exam: Present: carotid bruit (Right carotid bruit), JVD, regular rate and rhythm, systolic murmur. Absent: tachycardia - GI/Abdominal GI/Abdominal exam: Present: soft. Absent: ascites, distended, firm, tenderness - Extremities Exam Extremities exam: Present: normal inspection, normal capillary refill, full ROM. Absent: calf tenderness, edema - Back Exam Back exam: Present: normal inspection. Absent: CVA tenderness (L), CVA tenderness (R) - Neurological Exam Neurological exam: Present: alert, oriented X3 - Psychiatric Psychiatric exam: Present: normal affect, normal mood. Absent: agitated, anxious - Skin Skin exam: Present: warm, dry, intact, petechiae (Scattered; chest), other ( Ecchymoses BUEs). Absent: cyanosis, diaphoretic, rash Result/EKG - Labs CBC & BMP: 02/24/17 05:05 02/24/17 05:05 Lab Results: I have reviewed the past 24 hour labs Labs: Laboratory Results - last 24 hr 02/24/17 02/24/17 02/24/17 05:05 05:05 05:05 WBC 9.4 RBC 3.88 Hgb 11.6 L Hct 35.2 L MCV 90.7 MCH 30 MCHC 33.0 RDW 13.3 Plt Count 151 MPV 11.3 Neut % (Auto) 87.0 H Lymph % (Auto) 6.3 L Ballard % (Auto) 6.1 Eos % (Auto) 0.0 Baso % (Auto) 0.1 Neut # (Auto) 8.2 H Lymph # (Auto) 0.6 L Ballard # (Auto) 0.6 Eos # (Auto) 0.0 Baso # (Auto) 0.0 Immature Gran % 0.5 Nucleated RBC % 0.0 Immature Gran # 0.05 Nucleated RBCs # 0.00 Immature Plt Fraction 0.0 Sodium 131 L 131 L Potassium 5.6 H 5.5 H Chloride 95 L 95 L Carbon Dioxide 24 25 Anion Gap 17.6 H 16.5 H BUN 71 H 65 H Creatinine 3.40 H 3.40 H GFR Calculation 15 15 BUN/Creatinine Ratio 20.00 19.00 Glucose 149 H 149 H Calculated Osmolality 285.7 283.7 Calcium 8.9 9.6 Magnesium 2.8 H B-Natriuretic Peptide 02/24/17 05:05 WBC RBC Hgb Hct MCV MCH MCHC RDW Plt Count MPV Neut % (Auto) Lymph % (Auto) Ballard % (Auto) Eos % (Auto) Baso % (Auto) Neut # (Auto) Lymph # (Auto) Ballard # (Auto) Eos # (Auto) Baso # (Auto) Immature Gran % Nucleated RBC % Immature Gran # Nucleated RBCs # Immature Plt Fraction Sodium Potassium Chloride Carbon Dioxide Anion Gap BUN Creatinine GFR Calculation BUN/Creatinine Ratio Glucose Calculated Osmolality Calcium Magnesium B-Natriuretic Peptide 1989 H - Diagnostic Findings Procedure: Chest x-ray: image reviewed by me, report reviewed by me, Ultrasound : image reviewed by me, report reviewed by me - EKG EKG results: interpreted by me, no acute changes EKG shows: sinus rhythm Specialty Discharge - Follow Up or Referrals Andre Ruiz Attila, MD, personally performed the services described in this documentation, ascribed by Sasha Mckeon RN in my presence, and it is both accurate and complete .
--- NOTE | 2017-02-24 15:08 | Nephrology Consult Note ---
History of Present Illness Chief complaint: Acute on chronic renal failure History of present illness: Mr. Tyler is a 86 year old male with acute superimposed on chronic renal failure. He has significant valvular heart disease with a decreased ejection fraction. He presented with atypical chest pain not felt to be cardiac in nature. His creatinine initially was 2-1/2 and is now 3.4. He has been diuresed and has developed hyperkalemia with potassium of 5.6. He has been taking supplemental potassium along with Lasix. Physical exam he is in no distress with. His neck is without jugular venous distention. His chest is clear his heart without rub or gallop. I specifically do not hear pericardial rub. He has no peripheral edema. Impression acute superimposed on chronic renal failure. Probable mild volume depletion resulting in decreased renal perfusion. Mild hyperkalemia. Valvular heart disease. Suggestion: #1 discontinue KCl #2 hold off on diuretics for now. #3 recheck renal function which should improve Home Medications Medication Instructions Recorded Confirmed Type Aloe Vera 25 mg PO QAM 08/12/16 02/22/17 History Aspirin [Ecotrin] 81 mg PO QAM 08/12/16 02/22/17 History Cyanocobalamin (Vitamin B-12) 1,000 mcg PO BID 08/12/16 02/22/17 History [Vitamin B-12] Fluticasone Propionate [Flonase 1 spray BOTH NARES QA 08/12/16 02/22/17 History Allergy Relief] Furosemide 60 mg PO TID 08/12/16 02/22/17 History Metoprolol Succinate 25 mg PO QAM 08/12/16 02/22/17 History Montelukast Tab [Singulair Tab] 10 mg PO BEDTIME 08/12/16 02/22/17 History Multivitamin [One Daily] 1 each PO BEDTIME 08/12/16 02/22/17 History Nitroglycerin Sl Tab [Nitrostat] 0.4 mg SL Q5M PRN 08/12/16 02/22/17 History Oxybutynin Chloride [Oxybutynin 15 mg PO BEDTIME 08/12/16 02/22/17 History Chloride ER] Potassium Chloride 40 meq PO QAM 08/12/16 02/22/17 History Rabeprazole Sodium 20 mg PO QAM 08/12/16 02/22/17 History Thyroid,Pork [[place] Thyroid] 30 mg PO QAM 08/12/16 02/22/17 History Albuterol Sulfate 0.83 % RESP TX BID 08/13/16 02/22/17 History Iron 18 mg PO BID 08/13/16 02/22/17 History Lactobacillus Combo No.23 [Tyler 1 tablet PO BID 08/13/16 02/22/17 History Probiotic] Atorvastatin [Lipitor] 20 mg PO BEDTIME 02/22/17 02/22/17 History Cholecalciferol (Vitamin D3) 1,000 unit PO BID 02/22/17 02/22/17 History [Vitamin D3] Isosorbide Mononitrate [Imdur] 30 mg PO QAM 02/22/17 02/22/17 History Allergies Allergy/AdvReac Type Severity Reaction Status Date / Time doxycycline Allergy RASH Verified 02/22/17 07:20 latex Allergy RASH Verified 02/22/17 07:20 Medical,Surgical,& Family Hx - Medical History Cardio: History of: CHF, Hypertension, Valvular Heart Disease, Cardiovascular Problems Neurology: No history of: Seizures HEENT: History of: HEENT Problems (difficulty swallowing- esophagus dilated numerous times) Endocrine: History of: Dyslipidemia, Thyroid Disorder Respiratory: History of: COPD Genitourinary: History of: Bladder Problem, Prostate Problems Gastrointestinal: History of: GERD, GI Problems (constipation) Musculoskeletal: History of: Back/Neck Problems, Musculoskeletal Problems ( arthritis) - Surgical History Cardiac Surgeries: Sugical HX of: Cardiac Catheterization (august 2016), Cardiac Surgery Abdominal Surgeries: Surgical HX of: Colonoscopy, EGD Reproductive Surgeries: Surgical HX of;: Prostate Surgery (prostatectomy) - Family History Family History: Reports;: Family Cancer (brother), Family Heart Disease (sister x 2, brother), Family Hematology (sister), Family Hypertension (sister, brother , father), Family Stroke (mother, brother) Denies;: Family Anesthesia Reaction, Family Diabetes, Family Psychiatric Problems, Additional Family History - Social History Smoking Status: Former smoker Frequency of Alcohol Use: None Type of Drug Use: None Review of Systems 12 point system: reviewed and no additional remarkable complaints except as stated Exam - Vital Signs Vital signs: Period Temp Pulse Resp BP Sys/Braga Pulse Ox Last 24 Hr 96.7 F-99.2 F 63-73 15-20 99-112/50-74 93-99 - General Appearance General appearance: well-developed, well-nourished, appears started age Neck: no JVD, no thyromegaly, no carotid bruit, supple Respiratory: no kyphosis, no scoliosis Cardiology: no murmurs, no rub, no gallops, no edema, regular rate, regular rhythm, normal S1, normal S2 Gastrointestinal: normoactive bowel sounds Integumentary: no rash, warm and dry Neurologic: no focal deficit, no asterixis, alert and oriented x3, reflexes 2+ and symmetric, gait normal, strength 5/5 Musculoskeletal: no deformities, no erythema, no cyanosis, no clubbing Psychiatric: mood/affect appropriate, cooperative Results - Labs CBC & BMP: 02/24/17 05:05 02/24/17 05:05 Assessment and Plan (1) Chest wall pain Status: Acute Current Visit: Yes (2) Acute on chronic renal failure Status: Chronic Assessment and plan: Likely related to relative volume depletion Current Visit: Yes Specialty Discharge - Follow Up or Referrals
[2017-02-24] MEDS: MONTELUKAST 10 MG TABLET PO SCH (22:10)
[2017-02-24] MEDS: MULTIVITAMIN (CENTRUM) TABLET PO SCH (22:10)
[2017-02-24] MEDS: OXYBUTYNIN XL 15 MG TABLET PO SCH (22:10)
[2017-02-24] MEDS: ATORVASTATIN 20 MG TABLET PO SCH (22:11)
--- NOTE | 2017-02-25 02:01 | Order Completion Report ---
See report scanned to EMR
[2017-02-25] MEDS: ALBUTEROL 0.63 MG/3 ML NEB RESP TX SCH ×4 (02:44→19:08)
--- NOTE | 2017-02-25 07:55 | Order Completion Report ---
See report scanned to EMR
[2017-02-25 09:21] LABS: Calcium 9.4 MG/DL (8.5-10.1); Osmolality,Calculated 271.8 MOS/KG (273-304)
[2017-02-25 09:23] LABS: Potassium 6.2 MMOL/L (3.5-5.1)
[2017-02-25] MEDS ORDERED: SODIUM POLYSTYRENE SULFATE 15 GM/60 ML BOTTLE PO ONE (09:39)
[2017-02-25] MEDS: THYROID 60 MG TABLET PO SCH (10:31)
[2017-02-25] MEDS: FE C PO SCH ×2 (10:31→22:21)
[2017-02-25] MEDS: CYANOCOBALAMIN 500 MCG TABLET PO SCH ×2 (10:31→22:19)
[2017-02-25] MEDS: ISOSORBIDE MONONITRATE 30 MG TABLET PO SCH (10:32)
[2017-02-25] MEDS: METOPROLOL TARTRATE 25 MG TABLET PO SCH ×2 (10:32→22:20)
[2017-02-25] MEDS: PANTOPRAZOLE 40 MG TABLET PO SCH (10:32)
[2017-02-25] MEDS: CHOLECALCIFEROL 1,000 UNIT TABLET PO SCH ×2 (10:32→22:20)
[2017-02-25] MEDS: traMADol 50 MG TABLET PO SCH ×2 (10:33→22:19)
[2017-02-25] MEDS: ASPIRIN EC 325 MG TABLET PO SCH (10:33)
[2017-02-25] MEDS: ACETAMINOPHEN 325 MG TABLET PO SCH ×2 (10:33→22:19)
[2017-02-25] MEDS: GABAPENTIN 100 MG CAPSULE PO SCH ×3 (10:33→22:19)
[2017-02-25] MEDS: FLUTICASONE 50 MCG NASAL SPRAY 16 GM BOTTLE BOTH NARES SCH (10:34)
[2017-02-25] MEDS: LACTOBACILLUS ACIDOPHILUS/BULGARICUS CAPLET PO SCH ×2 (10:34→22:20)
[2017-02-25] MEDS: Aloe Vera [Aloe Vera] 25 MG PO SCH (10:36)
[2017-02-25] MEDS: ONDANSETRON 4 MG/2 ML VIAL IV PRN (10:37)
--- NOTE | 2017-02-25 11:36 | Ultrasound Report ---
Exam: US renal Bilateral Date: 02/25/2017 10:06 AM Indication: Acute on chronic renal failure Comparison: 05/14/2012 Findings: Right kidney. 8.6 x 3.2 x 4.2 cm. No hydronephrosis perinephric fluid collections or focal mass with mild increased echogenicity Left kidney. 8.1 x 4.4 x 3.7 cm. There is no hydronephrosis perinephric fluid collection with mild increased echogenicity Impression: 1. Mild medical renal disease without obstructive uropathy. Ultrasound images were stored and captured PROCEDURE INTERPRETED AT [facility] DEPARTMENT OF RADIOLOGY Final Report Signed by: Dr. Naveen Roberto
--- NOTE | 2017-02-25 11:51 | Nephrology Progress Note ---
Nephrology - PN: Subj Interval history: Mr. Tyler is seen in follow-up of his acute renal failure. Unfortunately his renal failure is worse today. His potassium was 6.2 but his supplemental potassium was just stopped yesterday. His weight is up but he does not have any significant edema and is not short of breath. Chest x-ray yesterday did not demonstrate any volume overload. Blood pressure is only 110 systolic and he appears weaker today. We note his forward cardiac output must be quite low considering mitral insufficiency and aortic insufficiency. But the acute decline in renal function since his admission for what apparently was noncardiac chest wall pain is somewhat puzzling. For now he is off his potassium supplement and is on no diuretics. He is drinking fairly well and eating poorly. I do not think invasive monitoring would be beneficial and I do think we would document a low cardiac output which is probably playing a significant role in his renal dysfunction. He remains on prednisone and I think we can probably decrease the dose and still get a nice anti-inflammatory effect. Exam (PN)-Nephrology - Vital Signs Vital signs: Period Temp Pulse Resp BP Sys/Braga Pulse Ox Last 24 Hr 98 F-99.3 F 58-67 16-22 105-140/45-66 92-100 - Lab 02/24/17 05:05 02/25/17 08:08 Most recent lab results Calcium 9.4 MG/DL (8.5-10.1) 02/25/17 08:08 Magnesium 2.8 MG/DL (1.8-2.4) H 02/24/17 05:05 Assessment and Plan (1) Chest wall pain Status: Acute Current Visit: Yes (2) Acute on chronic renal failure Status: Chronic Assessment and plan: Likely related to relative volume depletion Current Visit: Yes Specialty Discharge - Follow Up or Referrals
--- NOTE | 2017-02-25 13:24 | Pulmonology Progress Note ---
Pulmonary - PN: Subj Interval history: Mr. Tyler is an 86-year-old white male who is on initial pulmonary consultation 02/23/2017. At that time, our impressions were: 1. Heart disease with decreased cardiac output. I suspect the effective cardiac output is even more diminished secondary to mitral regurgitation and aortic insufficiency. 2. Severe mitral regurgitation. 2 clips were recently placed at [facility] in [place] 3. History of severe aortic stenosis with mild to moderate aortic insufficiency 4. Acute on chronic congestive heart failure 5. Chronic renal failure 6. COPD/asthma. Good control 7. Degenerative joint disease. 8. Hypothyroidism 9. See past history 02/24/2017. The patient was seen today along with his . He reports is breathing better since being diuresed. However, with the increased dose of Lasix his creatinine has now risen to 3.40. We stopped his Lasix for today and will start D5 normal saline at 50 mL/h for 5 hours. Repeat BMP has been ordered for tomorrow. Medications have been reviewed. Labs been reviewed. White count is 9400 with 87.0% segs; H&H 11.6/35.2; platelet count 151,000; creatinine 3.40, BUN 65, sodium 131, potassium 5.5, magnesium 2.8; BNP 1990 02/25/2017. Patient's renal status is worsened. Creatinine is now 4.40. His baseline is about 2.2-2.5. BUN is 83. Sodium is dropped to 123 and potassium is 6.2. Natruretic peptide is 1990. Dr. Dwayne Pool to see in this patient in renal consultation. Patient for ultrasound today and have ordered a spot urine for sodium potassium and osmolality. Patient has recently been in congestive heart failure. He recently had his mitral valve clipped [address] [facility] Castelan is echocardiogram done in the office she still had severe mitral regurgitation as well as severe aortic valve disease. Exam (Progress Note) - Constitutional Vitals: Period Temp Pulse Resp BP Sys/Braga Pulse Ox Last 24 Hr 96.7 F-99.2 F 63-73 15-20 99-112/50-74 93-99 Exam: Psychiatric. Oriented 3 General. Looks very weak Chest is fairly clear, but with decreased inspiratory excursion Heart with a lateral PMI and a grade 1.5/6 systolic ejection murmur left sternal border; there is a separate murmur that is heard above the aortic valve Abdomen is nontender and nondistended; bowel sounds are positive 4 Extremities with nothing to suggest acute deep venous femoral phlebitis Psychiatric oriented 3 presently, although his reports that the patient had confusion through the night Neurologic unchanged Plan: 02/24/2017 1. Stop Lasix for today. 2. Start D5 normal saline at 50 mL/h for 5 hours. 3. Repeat BMP/magnesium in the morning. 4. See orders 02/25/2017. 1. See orders. 2. See my note above 3. I appreciate Dr. Pool's help Exam (Progress Note) - Constitutional Vitals: Period Temp Pulse Resp BP Sys/Braga Pulse Ox Last 24 Hr 98 F-99.3 F 58-67 16-22 105-140/45-66 92-100 Results - Labs CBC & BMP: 02/24/17 05:05 02/25/17 08:08 Specialty Discharge - Follow Up or Referrals
--- NOTE | 2017-02-25 14:47 | Physician Query Form ---
CLICK EDIT DOCUMENT TO SELECT QUERY ANSWER --> OK --> SIGN Zainab Ray RN Clinical [place] W) [phone] (f) [phone] [email or web address] PROVIDERS: Make your selection(s) from the choices in EACH section by typing an "x" and enter comments in the comment section. Please use your independent medical judgment in providing your response. This request does not imply that any particular answer is desired or expected. CLINICAL INDICATORS: (Providers should not edit this section) Based on documentation of "acute on chronic CHF", [id number], Echo report states EF is estimated at 15-20% in the parasternal long axis view and 30-40% in the apical view. Pt. treated with IV Lasix. Please provide further specificity regarding CHF. TYPE: (X ) Systolic (HFrEF - heart failure with reduced systolic function/EF) ( ) Diastolic (HFpEF - heart failure with preserved systolic function/EF) ( ) Combined Systolic/Diastolic ( ) Other, please specify: ( ) Clinically unable to determine COMMENTS: PLEASE ALSO DOCUMENT RESPONSE IN PROGRESS NOTES AND/OR DISCHARGE SUMMARY Use of terms such as suspected, likely, or probable (associated with a specific diagnosis that is being evaluated, monitored, or treated as if it exists) are acceptable and can be restated in the discharge summary if not ruled out. MTDD
--- NOTE | 2017-02-25 15:04 | Cardiology Progress Note ---
Assessment and Plan - Time spent with patient Time spent with patient: Less than 30 minutes (1) Chest pain Status: Acute Assessment and plan: See plan of care listed below. Current Visit: Yes (2) Mitral regurgitation Status: Chronic Assessment and plan: See plan of care listed below. Current Visit: Yes (3) Hypertension Status: Chronic Assessment and plan: See plan of care listed below. Current Visit: Yes (4) Hyperkalemia Status: Acute Assessment and plan: See plan of care listed below. Current Visit: Yes (5) Hypothyroid Status: Chronic Assessment and plan: See plan of care listed below. Current Visit: Yes (6) Hyperlipidemia Status: Chronic Assessment and plan: See plan of care listed below. Current Visit: Yes (7) Cardiomyopathy Status: Chronic Assessment and plan: See plan of care listed below. Current Visit: Yes (8) Acute on chronic renal failure Status: Chronic Assessment and plan: See plan of care listed below. Current Visit: Yes (9) CAD (coronary artery disease) Status: Chronic Assessment and plan: See plan of care listed below. Current Visit: Yes (10) Status post implantation of mitral valve leaflet clip Status: Chronic Assessment and plan: See plan of care listed below. Current Visit: Yes Cardiology - PN: Subj Interval history: Packaging Inspector: Dr. Castelan Summary: 86-year-old WM, who presented with chest pain worse with inspiration following significant physical exertion. PMHx HLD, HTN, severe MR, COPD, hypothyroidism, chronic renal insufficiency, former tobacco use. Per [facility] by Dr. Castelan in August 2016, has 2 vessel CAD. Now status post coronary stent at [facility] at same time he had mitral valve clip for MVP. Chronic anemia with history of varices requiring several transfusions, follows routinely with Dr. Valenzuela. Post MV clip, continues to have significant mitral regurg as well as moderate aortic regurgitation, appears to have small PFO/ASD. History of severe pulm HTN, none per recent echo. On admission he was mildly orthopneic, BNP 2400 and creatinine 2.5 on admit (1.9 in clinic on 02/06). Lasix dosage was recently increased by pulmonary during clinic visit, and patient had improvement of CHF symtpoms. He had an elevated d-dimer, subsequent VQ lung scan low to intermediate probability for PE. BLE venous doppler of negative for DVT. Echo on 02/23 with mod LVH. Overall EF 20-25% range. Febrile on admission. Improved now. FEBRUARY 25, 2017: Mr. Tyler is seen resting in the bed upon exam today. We are continuing to follow him for the following chronic stable conditions: hypertension, hyperlipidemia, coronary artery disease. We also continue to follow him for the following acute conditions: mitral regurgitation, hyperkalemia, cardiomyopathy, acute on chronic renal failure. His potassium was 6.2 this morning and he was given 30gm Kayexalate. His creatinine continues to rise and is 4.4 today with GFR 11. Nephrology is following. He remains in sinus rhythm with well-controlled rates in the 50s-60s. Blood pressure is 127/ 60. He is making a little urine but his weight has continued to rise. Dr. Powell to follow with further plan an addendum. REVIEW OF SYSTEMS: CARDIAC: Denies chest pain, palpitations, orthopnea. RESPIRATORY: Denies shortness of breath at present. GI: Denies abdominal pain, n/v. IMPRESSION/PLAN: - CHEST PAIN: Pericardial rub was suspected earlier in admission, yesterday, only some pleural friction on the left side. Continue prednisone, stopped the colchicine due to worsening creatinine. No further episodes of CP. - MITRAL REGURGITATION: S/p mitral clip. - HYPERTENSION: Currently well controlled. Continue current plan of care. - HYPERKALEMIA: He was given kayexalate earlier today without results. We will recheck his potassium level this afternoon. - HYPOTHYROID: Continue [place] Thyroid. - HYPERLIPIDEMIA: Continue Lipitor 20mg PO QHS. - CARDIOMYOPATHY: EF 20%. Continue current plan of care. - ACUTE ON CHRONIC RENAL FAILURE: Nephrology has been consulted. His diuretics and potassium replacements are being held. - CORONARY ARTERY DISEASE: No ACS symptoms presently. Continue aspirin 325mg po daily, metoprolol 25mg po BID, atorvastatin 20mg po QHS, imdur 30mg po daily. - S/P MITRAL VALVE LEAFLET CLIP: Echo shows still quite severe MR, EF around 20 %. No pericardial effusion. Exam (Progress Note) - Constitutional Vitals: Period Temp Pulse Resp BP Sys/Braga Pulse Ox Last 24 Hr 98 F-99.3 F 58-67 16-22 105-140/45-66 92-100 Exam: General appearance: Appears well. Pleasant and cooperative. Overweight, no acute distress. Head exam: Present: normal inspection, normocephalic, atraumatic. Absent: hematoma, laceration Eye exam: Present: EOMI. Absent: conjunctival injection, nystagmus, periorbital swelling, scleral icterus, laceration to eyelids, jaundice Pupils: Present: PERRL. Absent: constricted, dilated, fixed, irregular, unequal ENT exam: Present: normal exam, normal external ear exam, mucous membranes moist. Neck exam: Present: normal inspection, midline trachea, right carotid bruit. Absent: masses, lymphadenopathy, tenderness, thyromegaly Respiratory exam: Present: clear to auscultation bilaterally. Absent: accessory muscle use, chest wall tenderness, rales, rhonchi, wheezing. Cardiovascular exam: Present: regular rate and rhythm, JVD, systolic murmur. Absent: gallop, rubs GI/Abdominal exam: Present: normal bowel sounds, soft. Absent: distended, firm , hernia, mass, tenderness. Extremities exam: Present: Normal Gait, No Clubbing, No Cyanosis, Upper Extr. Pulses 2+, Lower Extr. Pulses 2+, No edema. Capillary refill less than 3 seconds. Musculoskeletal: Present: No Fluid Collection, No Pain, Normal Range of Motion Back exam: Present: normal inspection. Absent: muscle spasm, vertebral tenderness Neurological exam: Present: awake, alert, oriented X3, Moves all extremities well without hemiparesis or paralysis. Grossly intact without resting or essential tremor Psychiatric exam: Present: normal affect, normal mood Skin exam: Present: normal color, warm, dry, intact, scattered petechiae on chest and ecchymoses to BUEs. Absent: cyanosis, diaphoretic, rash, urticaria Result/EKG - Labs CBC & BMP: 02/24/17 05:05 02/25/17 08:08 Lab Results: I have reviewed the past 24 hour labs Labs: Laboratory Results - last 24 hr 02/25/17 02/25/17 02/25/17 08:08 Unknown Unknown Sodium 123 L Potassium 6.2 H* Chloride 87 L Carbon Dioxide 22 Anion Gap 20.2 H BUN 83 H Creatinine 4.40 H GFR Calculation 11 BUN/Creatinine Ratio 18.00 Glucose 92 Calculated Osmolality 271.8 L Calcium 9.4 Ur Random Sodium < 5.0 Ur Random Potassium 81 - EKG EKG results: interpreted by me, sinus rhythm Specialty Discharge - Follow Up or Referrals
[2017-02-25] MEDS ORDERED: SODIUM POLYSTYRENE SULFATE 15 GM/60 ML BOTTLE PO STA (16:42)
[2017-02-25] MEDS ORDERED: SODIUM BICARB INJ 100 MEQ in DEXTROSE 5% NACL 0.45% 1,000 ML IV SCH (17:30)
[2017-02-25] MEDS ORDERED: FUROSEMIDE INJ 160 MG in SODIUM CHLORIDE 0.9% 50 ML IV ONE (17:30)
--- NOTE | 2017-02-25 17:51 | Event Note ---
Mr. Lopez is seen with a potassium of 6.6. We have opted to the bathroom is very weak. We talked with Ms. Lopez about wishes for CODE STATUS in the do not wish him to be coded and I agree with that. We will continue comfort care and supportive care. He will be managed as a DNR.
[2017-02-25] MEDS: MULTIVITAMIN (CENTRUM) TABLET PO SCH (22:20)
[2017-02-25] MEDS: ATORVASTATIN 20 MG TABLET PO SCH (22:20)
[2017-02-25] MEDS: OXYBUTYNIN XL 15 MG TABLET PO SCH (22:20)
[2017-02-25] MEDS: MONTELUKAST 10 MG TABLET PO SCH (22:20)
[2017-02-26] MEDS: ALBUTEROL 0.63 MG/3 ML NEB RESP TX SCH ×4 (01:16→19:11)
[2017-02-26 05:09] LABS: Hematocrit 31.3 VOL% (42.0-52.0); Hemoglobin 10.9 GM/DL (14.0-18.0); Immature Granulocytes % 0.6 %; Immature Granulocytes Absolute 0.04 #; Lymphocytes # 0.4 10*3/uL (1.4-4.0); Lymphocytes % 5.9 % (21.2-54.2); Mean Corpuscular HGB Conc 34.8 GM/DL (32-36); Mean Corpuscular Hemoglobin 30 PG (27-34); Mean Corpuscular Volume 85.5 FL (87-102); Mean Platelet Volume 11.6 FL (9.6-12.0); Monocytes # 0.4 10*3/uL (0.11-0.8); Monocytes % 5.9 % (1.7-12.7); NRBC # 0.03 10*3/uL; Neutrophils % 87.6 % (38.7-73.9); Platelet Count 110 T/CUMM (130-400); Red Blood Count 3.66 MC/CUMM (3.8-5.5); Red Cell Distribution Width 12.7 % (9.3-17.3); White Blood Count 6.8 T/CUMM (4-12)
[2017-02-26 05:39] LABS: Calcium 8.3 MG/DL (8.5-10.1); Osmolality,Calculated 285.4 MOS/KG (273-304); Potassium 5.3 MMOL/L (3.5-5.1)
--- NOTE | 2017-02-26 07:56 | XRay Report ---
Exam: XR chest 1V portable Date: 02/26/2017 632 AM Indication: Shortness of breath Comparison: 02/24/2017 Technical: AP portable Findings: Cardiomegaly is present with low volume effusions and underlying atelectatic change or infiltrate in the base regions right greater than left. ASVD is present. No pneumothorax. Small calcified nodes in the mediastinum. 2 small metallic clips over the left central heart border Impression: 1. Worsening findings with component of the CHF with cardiomegaly and bilateral effusions and underlying atelectatic change. Superimposed pneumonic infiltrate cannot be totally excluded in the right base PROCEDURE INTERPRETED AT [facility] DEPARTMENT OF RADIOLOGY Final Report Signed by: Dr. Naveen Roberto
--- NOTE | 2017-02-26 08:17 | Nephrology Progress Note ---
Nephrology - PN: Subj Interval history: Mr. Lopez is better than yesterday. His potassium is 5.3. He had bowel movements yesterday and he is making urine. His chest is fairly clear but chest x-ray is beginning to get wet and his BNP is elevated at 3000. He is now a DNR which is appropriate. We will continue with a bit of IV fluid today but stopped that after another 10 hours and will repeat the Lasix 160 mg today. It is unlikely that he will turn around and recover to any vigor at all. Exam (PN)-Nephrology - Vital Signs Vital signs: Period Temp Pulse Resp BP Sys/Braga Pulse Ox Last 24 Hr 98.2 F-99.1 F 40-78 14-18 108-135/56-68 92-100 - Lab 02/26/17 04:31 02/26/17 04:31 Most recent lab results Calcium 8.3 MG/DL (8.5-10.1) L 02/26/17 04:31 Magnesium 2.8 MG/DL (1.8-2.4) H 02/24/17 05:05 Assessment and Plan (1) Chest wall pain Status: Acute Current Visit: Yes (2) Acute on chronic renal failure Status: Chronic Assessment and plan: Likely related to relative volume depletion Current Visit: Yes Specialty Discharge - Follow Up or Referrals
[2017-02-26] MEDS: CYANOCOBALAMIN 500 MCG TABLET PO SCH ×2 (08:57→21:54)
[2017-02-26] MEDS: LACTOBACILLUS ACIDOPHILUS/BULGARICUS CAPLET PO SCH ×2 (08:57→21:54)
[2017-02-26] MEDS: THYROID 60 MG TABLET PO SCH (08:57)
[2017-02-26] MEDS: GABAPENTIN 100 MG CAPSULE PO SCH ×3 (08:57→21:55)
[2017-02-26] MEDS: ISOSORBIDE MONONITRATE 30 MG TABLET PO SCH (08:58)
[2017-02-26] MEDS: ACETAMINOPHEN 325 MG TABLET PO SCH ×2 (08:58→21:55)
[2017-02-26] MEDS: ASPIRIN EC 325 MG TABLET PO SCH (08:58)
[2017-02-26] MEDS: PANTOPRAZOLE 40 MG TABLET PO SCH (08:58)
[2017-02-26] MEDS: METOPROLOL TARTRATE 25 MG TABLET PO SCH ×2 (08:58→21:55)
[2017-02-26] MEDS: traMADol 50 MG TABLET PO SCH ×2 (08:58→21:55)
[2017-02-26] MEDS: predniSONE 10 MG TABLET PO SCH (08:58)
[2017-02-26] MEDS: CHOLECALCIFEROL 1,000 UNIT TABLET PO SCH ×2 (08:58→21:55)
[2017-02-26] MEDS ORDERED: FUROSEMIDE INJ 160 MG in SODIUM CHLORIDE 0.9% 50 ML IV ONE (09:00)
[2017-02-26] MEDS: FLUTICASONE 50 MCG NASAL SPRAY 16 GM BOTTLE BOTH NARES SCH (09:01)
[2017-02-26] MEDS: FE C PO SCH ×2 (09:01→23:20)
[2017-02-26] MEDS: Aloe Vera [Aloe Vera] 25 MG PO SCH (09:04)
--- NOTE | 2017-02-26 11:29 | Pulmonology Progress Note ---
Pulmonary - PN: Subj Interval history: Isai Mendez, [facility]-, acting as scribe for Dr. Naveen Santos Mr. Tyler is an 86-year-old white male who is on initial pulmonary consultation 02/23/2017. At that time, our impressions were: 1. Heart disease with decreased cardiac output. I suspect the effective cardiac output is even more diminished secondary to mitral regurgitation and aortic insufficiency. 2. Severe mitral regurgitation. 2 clips were recently placed at [facility] in [place] 3. History of severe aortic stenosis with mild to moderate aortic insufficiency 4. Acute on chronic congestive heart failure 5. Chronic renal failure 6. COPD/asthma. Good control 7. Degenerative joint disease. 8. Hypothyroidism 9. See past history 02/24/2017. The patient was seen today along with his . He reports is breathing better since being diuresed. However, with the increased dose of Lasix his creatinine has now risen to 3.40. We stopped his Lasix for today and will start D5 normal saline at 50 mL/h for 5 hours. Repeat BMP has been ordered for tomorrow. Medications have been reviewed. Labs been reviewed. White count is 9400 with 87.0% segs; H&H 11.6/35.2; platelet count 151,000; creatinine 3.40, BUN 65, sodium 131, potassium 5.5, magnesium 2.8; BNP 1990 02/25/2017. Patient's renal status is worsened. Creatinine is now 4.40. His baseline is about 2.2-2.5. BUN is 83. Sodium is dropped to 123 and potassium is 6.2. Natruretic peptide is 1989. Dr. Dwayne Pool to see in this patient in renal consultation. Patient for ultrasound today and have ordered a spot urine for sodium potassium and osmolality. Patient has recently been in congestive heart failure. He recently had his mitral valve clipped [address] [facility] Castelan is echocardiogram done in the office she still had severe mitral regurgitation as well as severe aortic valve disease. 02/26/2017. The patient was seen today along with his and several other family members. He is awake, alert and conversant. He is able to answer questions appropriately. Chest x-ray today continues to show mild congestive heart failure especially on the right. However, he states he is breathing well. BNP has risen to 3633. Creatinine has worsened slightly to 4.50. Potassium, however, has improved to 5.3. He has been followed from nephrology standpoint by Dr. Pool. His notes have been reviewed and we appreciate his assistance. The patient has now been made a DNR by his family. This is noted. Renal ultrasound done yesterday showed mild medical renal disease without obstructive uropathy. Medications have been reviewed. We made no changes today. Labs been reviewed. White count is 6800 with 87.6% segs; H&H 10.9/31.3; platelet count 110,000; creatinine 4.50, BUN 100, sodium 126, potassium 5.3; BNP 3633 Exam (Progress Note) - Constitutional Vitals: Period Temp Pulse Resp BP Sys/Braga Pulse Ox Last 24 Hr 98.2 F-99.1 F 40-78 14-18 108-135/56-68 92-100 Exam: Chest is fairly clear, but with decreased inspiratory excursion Heart with a lateral PMI and a grade 1.5/6 systolic ejection murmur left sternal border; there is a separate murmur that is heard above the aortic valve Abdomen is nontender and nondistended; bowel sounds are positive 4 Extremities with nothing to suggest acute deep venous thrombophlebitis Psychiatric oriented 3 presently Neurologic unchanged Plan: Continue present treatment. See orders. DNR status noted. Results - Labs CBC & BMP: 02/26/17 04:31 02/26/17 04:31 Specialty Discharge - Follow Up or Referrals
--- NOTE | 2017-02-26 17:21 | Cardiology Progress Note ---
Mike Ruiz Vanessa, RN, am scribing for, and in the presence of, Saad Powell MD 17 :21. Assessment and Plan - Time spent with patient Time spent with patient: Greater than 30 minutes (1) Chest pain Status: Acute Assessment and plan: 86-year-old WM, PMHx HTN, severe MR and CAD now s/p MV clip and coronary stents at [facility]. Also has moderate AR, severe pulm HTN. Now admitted with chest wall pain. ACS and PE/DVT ruled out. Echo: EF 20-25% range, mod NIDA, mod to severe TR EKG: SR, occ PAC, HR 70s -Severe MR, s/p Mitraclip. Echo shows still quite severe MR, ejection fraction remained around 20%. No pericardial effusion. -ESTEPHANIE on CKD. 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 Blood pressure, heart rate fairly well controlled. Renal following, he is not a dialysis candidate -Chest pain. Pericardial rub was suspected, resolved. Continue low-dose prednisone short term. Acute kidney injury limits options -D-dimer was mildly elevated, no DVT. VQ scan was low to moderate probability. No evidence of pulmonary hypertension on echo. Going to hold off anticoagulation at this time. -mild hyperkalemia but improved from yesterday -Delirium. We discussed prognosis with family, which seems to be dependent on his renal function. He made some urine today Current Visit: Yes (2) Hypertension Status: Chronic Current Visit: Yes (3) Hyperkalemia Status: Acute Assessment and plan: See Impression/Plan Above. Current Visit: Yes (4) Hypothyroid Status: Chronic Current Visit: Yes (5) Hyperlipidemia Status: Chronic Assessment and plan: See Impression/Plan Above. Current Visit: Yes (6) Cardiomyopathy Status: Chronic Assessment and plan: See Impression/Plan Above. Current Visit: Yes (7) Acute on chronic renal failure Status: Chronic Assessment and plan: See Impression/Plan Above. Current Visit: Yes (8) CAD (coronary artery disease) Status: Chronic Assessment and plan: See Impression/Plan Above. Current Visit: Yes (9) Mitral regurgitation Status: Chronic Assessment and plan: See Impression/Plan Above. Current Visit: Yes (10) Status post implantation of mitral valve leaflet clip Status: Chronic Assessment and plan: See Impression/Plan Above. 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 Castelan Summary: 86-year-old WM, who presented with chest pain worse with inspiration following significant physical exertion. PMHx HLD, HTN, severe MR, COPD, hypothyroidism, chronic renal insufficiency, former tobacco use. Per C by Dr. Castelan in August 2016, has 2 vessel CAD. Now status post coronary stent at [facility] at same time he had mitral valve clip for [facility]. Chronic anemia with history of varices requiring several transfusions, follows routinely with Dr. Valenzuela. Post MV clip, continues to have significant mitral regurg as well as moderate aortic regurgitation, appears to have small PFO/ASD. History of severe pulm HTN, none per recent echo. On admission he was mildly orthopneic, BNP 2400 and creatinine 2.5 on admit (1.9 in clinic on 02/06). Lasix dosage had recently increased by pulmonary during clinic visit, and patient had improvement of CHF symtpoms. Elevated d-dimer, subsequent VQ lung scan low to intermediate probability for PE. BLE venous doppler of negative for DVT. Echo on 02/23 with mod LVH. Overall EF 20-25% range. Febrile on admission. Improved now. Since admission, since admission, renal function has continued to deteriorate and has had hyperkalemia which has been treated with Kayexalate. CODE STATUS has been changed to DO NOT RESUSCITATE. February 26, 2017: Drowsy this afternoon, napping without acute respiratory distress. at bedside. Patient rouses, moderate confusion. reports this is normal for him. No chest pain. Patient reports his breathing is "fair" today, admits to some shortness of breath at rest, but says is improved from yesterday. SBP 110- 120 mmHg. Telemetry: SR, HR 60s-70s, PAC/PVC. Labs reviewed. Hyperkalemia (5.3 ) improved today after adm of Kayexalate. Sodium 126. Creatinine 4.5, no significant change. BUN 100. BNP >3600. Chest x-ray with some continued mild CHF. Will continue to monitor and treat chronic pulm HTN, MR, HTN, CKD. Continue to monitor and treat ESTEPHANIE, hyperkalemia, cardiomyopathy. Per EMR, weight is rising. Does have some UOP. ROS: Respiratory- admits dyspnea. no cough. Cardiovascular- no chest pain or palpitations GI- no abd pain, N/V. appetite fair. Exam (Progress Note) - Constitutional Vitals: Period Temp Pulse Resp BP Sys/Braga Pulse Ox Last 24 Hr 98.2 F-99.1 F 40-78 14-18 108-135/56-68 92-100 Exam: General appearance: no acute distress, under weight - Head Head exam: Present: normal inspection. Absent: abrasion, contusion, hematoma - Eye Eye exam: Present: EOMI. Absent: periorbital swelling, laceration to eyelids Pupils: Present: HASMUKH. Absent: dilated - ENT ENT exam: Present: normal external ear exam - Neck Neck exam: Absent: tenderness - Respiratory Respiratory exam: Present: clear to auscultation bilaterally, some coarse breath sounds. Absent: rales, rhonchi, stridor, wheezes - Cardiovascular Cardiovascular exam: Present: carotid bruit (Right carotid bruit), JVD, regular rate and rhythm, systolic murmur. Absent: tachycardia - GI/Abdominal GI/Abdominal exam: Present: soft. Absent: ascites, distended, firm, tenderness - Extremities Exam Extremities exam: Present: normal inspection, normal capillary refill, full ROM. Absent: calf tenderness, edema - Back Exam Back exam: Present: normal inspection. Absent: CVA tenderness (L), CVA tenderness (R) - Neurological Exam Neurological exam: Present: alert, oriented X3 - Psychiatric Psychiatric exam: Present: normal affect, normal mood. Absent: agitated, anxious - Skin Skin exam: Present: warm, dry, intact, petechiae (Scattered; chest), other ( Ecchymoses BUEs). Absent: cyanosis, diaphoretic, rash. Other: skin tear left FA (dsg d/i) Result/EKG - Labs CBC & BMP: 02/26/17 04:31 02/26/17 04:31 Lab Results: I have reviewed the past 24 hour labs Labs: Laboratory Results - last 24 hr 02/25/17 02/25/17 02/25/17 14:54 Unknown Unknown WBC RBC Hgb Hct MCV MCH MCHC RDW Plt Count MPV Neut % (Auto) Lymph % (Auto) Hendry % (Auto) Eos % (Auto) Baso % (Auto) Neut # (Auto) Lymph # (Auto) Hendry # (Auto) Eos # (Auto) Baso # (Auto) Immature Gran % Nucleated RBC % Immature Gran # Nucleated RBCs # Immature Plt Fraction Sodium Potassium 6.6 H* Chloride Carbon Dioxide Anion Gap BUN Creatinine GFR Calculation BUN/Creatinine Ratio Glucose Calculated Osmolality Calcium B-Natriuretic Peptide Ur Random Sodium < 5.0 Ur Random Potassium 81 02/26/17 02/26/17 02/26/17 04:31 04:31 04:31 WBC 6.8 RBC 3.66 L Hgb 10.9 L Hct 31.3 L MCV 85.5 L MCH 30 MCHC 34.8 RDW 12.7 Plt Count 110 L D MPV 11.6 Neut % (Auto) 87.6 H Lymph % (Auto) 5.9 L Hendry % (Auto) 5.9 Eos % (Auto) 0.0 Baso % (Auto) 0.0 Neut # (Auto) 6.0 Lymph # (Auto) 0.4 L Hendry # (Auto) 0.4 Eos # (Auto) 0.0 Baso # (Auto) 0.0 Immature Gran % 0.6 Nucleated RBC % 0.4 Immature Gran # 0.04 Nucleated RBCs # 0.03 Immature Plt Fraction 0.0 Sodium 126 L Potassium 5.3 H Chloride 87 L Carbon Dioxide 21 Anion Gap 23.3 H BUN 100 H D Creatinine 4.50 H GFR Calculation 11 BUN/Creatinine Ratio 22.00 H Glucose 136 H Calculated Osmolality 285.4 Calcium 8.3 L B-Natriuretic Peptide 3633 H Ur Random Sodium Ur Random Potassium - Diagnostic Findings Procedure: Chest x-ray: image reviewed by me, report reviewed by me (02/26/17 worsening CHF with underlying atelectasis. Possible pneumonic infiltrate RLL.) - EKG EKG results: interpreted by me, no acute changes EKG shows: sinus rhythm Specialty Discharge - Follow Up or Referrals Andre Ruiz Attila, MD, personally performed the services described in this documentation, ascribed by Sasha Mckeon RN in my presence, and it is both accurate and complete 721 .
[2017-02-26] MEDS: MULTIVITAMIN (CENTRUM) TABLET PO SCH (21:55)
[2017-02-26] MEDS: OXYBUTYNIN XL 15 MG TABLET PO SCH (21:55)
[2017-02-26] MEDS: ATORVASTATIN 20 MG TABLET PO SCH (21:55)
[2017-02-26] MEDS: MONTELUKAST 10 MG TABLET PO SCH (21:55)
[2017-02-27] MEDS: ALBUTEROL 0.63 MG/3 ML NEB RESP TX SCH ×3 (00:19→13:18)
[2017-02-27 06:22] LABS: Calcium 8.6 MG/DL (8.5-10.1); Osmolality,Calculated 290.2 MOS/KG (273-304); Potassium 4.7 MMOL/L (3.5-5.1)
[2017-02-27] MEDS ORDERED: FUROSEMIDE INJ 240 MG in SODIUM CHLORIDE 0.9% 50 ML IV ONE (08:26)
--- NOTE | 2017-02-27 08:26 | Nephrology Progress Note ---
Nephrology - PN: Subj Interval history: Mr. Gillis is no better today. His creatinine is up to 5.2, he is oliguric, but is not short of breath. His chest is fairly clear and he has minimal peripheral edema. His weight is going up and he has been unresponsive to attempts at diuresis. I believe he will likely continue to gain weight and soon become short of breath. Will try to encourage more urine output with metolazone and IV Lasix but I do not have much hope that that will work. I think the problem is poor renal perfusion due to a low cardiac output and this is in all likelihood a terminal state. He is getting weaker as evidenced by inability to get to and from the bathroom now with assistance according to Ms. Ellington. Overall his outlook is poor but he remains comfortable. Exam (PN)-Nephrology - Vital Signs Vital signs: Period Temp Pulse Resp BP Sys/Braga Pulse Ox Last 24 Hr 98 F-99.3 F 50-75 16-20 106-148/56-67 92-99 - Lab 02/26/17 04:31 02/27/17 05:39 Most recent lab results Calcium 8.6 MG/DL (8.5-10.1) 02/27/17 05:39 Magnesium 2.8 MG/DL (1.8-2.4) H 02/24/17 05:05 Assessment and Plan (1) Chest wall pain Status: Acute Current Visit: Yes (2) Acute on chronic renal failure Status: Chronic Assessment and plan: Likely related to relative volume depletion Current Visit: Yes Specialty Discharge - Follow Up or Referrals
[2017-02-27] MEDS ORDERED: metOLazone 5 MG TABLET PO SCH (09:00)
[2017-02-27] MEDS: GABAPENTIN 100 MG CAPSULE PO SCH ×2 (09:41→15:16)
[2017-02-27] MEDS: THYROID 60 MG TABLET PO SCH (09:41)
[2017-02-27] MEDS: LACTOBACILLUS ACIDOPHILUS/BULGARICUS CAPLET PO SCH (09:41)
[2017-02-27] MEDS: CHOLECALCIFEROL 1,000 UNIT TABLET PO SCH (09:41)
[2017-02-27] MEDS: CYANOCOBALAMIN 500 MCG TABLET PO SCH (09:41)
[2017-02-27] MEDS: traMADol 50 MG TABLET PO SCH (09:41)
[2017-02-27] MEDS: ACETAMINOPHEN 325 MG TABLET PO SCH (09:41)
[2017-02-27] MEDS: METOPROLOL TARTRATE 25 MG TABLET PO SCH (09:42)
[2017-02-27] MEDS: ASPIRIN EC 325 MG TABLET PO SCH (09:42)
[2017-02-27] MEDS: ISOSORBIDE MONONITRATE 30 MG TABLET PO SCH (09:42)
[2017-02-27] MEDS: predniSONE 10 MG TABLET PO SCH (09:42)
[2017-02-27] MEDS: PANTOPRAZOLE 40 MG TABLET PO SCH (09:42)
[2017-02-27] MEDS: FLUTICASONE 50 MCG NASAL SPRAY 16 GM BOTTLE BOTH NARES SCH (09:50)
[2017-02-27] MEDS: FE C PO SCH (09:50)
[2017-02-27] MEDS: Aloe Vera [Aloe Vera] 25 MG PO SCH (09:50)
--- NOTE | 2017-02-27 11:25 | Pulmonology Progress Note ---
Pulmonary - PN: Subj Interval history: Isai Mendez, [facility]-, acting as scribe for Dr. Naveen Santos Mr. Tyler is an 86-year-old white male who is on initial pulmonary consultation 02/23/2017. At that time, our impressions were: 1. Heart disease with decreased cardiac output. I suspect the effective cardiac output is even more diminished secondary to mitral regurgitation and aortic insufficiency. 2. Severe mitral regurgitation. 2 clips were recently placed at [facility] in [place] 3. History of severe aortic stenosis with mild to moderate aortic insufficiency 4. Acute on chronic congestive heart failure 5. Chronic renal failure 6. COPD/asthma. Good control 7. Degenerative joint disease. 8. Hypothyroidism 9. See past history 02/24/2017. The patient was seen today along with his . He reports is breathing better since being diuresed. However, with the increased dose of Lasix his creatinine has now risen to 3.40. We stopped his Lasix for today and will start D5 normal saline at 50 mL/h for 5 hours. Repeat BMP has been ordered for tomorrow. Medications have been reviewed. Labs been reviewed. White count is 9400 with 87.0% segs; H&H 11.6/35.2; platelet count 151,000; creatinine 3.40, BUN 65, sodium 131, potassium 5.5, magnesium 2.8; BNP 1990 02/25/2017. Patient's renal status is worsened. Creatinine is now 4.40. His baseline is about 2.2-2.5. BUN is 83. Sodium is dropped to 123 and potassium is 6.2. Natruretic peptide is 1989. Dr. Dwayne Pool to see in this patient in renal consultation. Patient for ultrasound today and have ordered a spot urine for sodium potassium and osmolality. Patient has recently been in congestive heart failure. He recently had his mitral valve clipped [address] [place] Castelan is echocardiogram done in the office she still had severe mitral regurgitation as well as severe aortic valve disease. 02/26/2017. The patient was seen today along with his and several other family members. He is awake, alert and conversant. He is able to answer questions appropriately. Chest x-ray today continues to show mild congestive heart failure especially on the right. However, he states he is breathing well. BNP has risen to 3633. Creatinine has worsened slightly to 4.50. Potassium, however, has improved to 5.3. He has been followed from nephrology standpoint by Dr. Pool. His notes have been reviewed and we appreciate his assistance. The patient has now been made a DNR by his family. This is noted. Renal ultrasound done yesterday showed mild medical renal disease without obstructive uropathy. Medications have been reviewed. We made no changes today. Labs been reviewed. White count is 6800 with 87.6% segs; H&H 10.9/31.3; platelet count 110,000; creatinine 4.50, BUN 100, sodium 126, potassium 5.3; BNP 3633 02/27/2017. The patient was seen today along with his and 2 daughters. He is awake and alert. He states that he is breathing comfortably. However, his reports that he is losing strength. She inquired about physical therapy and we have consulted him to begin working with the patient. Dr. Pool' s note has been reviewed and we agree. Patient's and daughters have talked with case management about home health versus hospice. Dr. Powell has agreed for hospice evaluation. Creatinine is worsening. Level today is 2.5. Hyperkalemia has resolved with a potassium of 4.7 today. We will repeat a chest x-ray tomorrow. He will have repeat labs tomorrow as well. Medications have been reviewed. We made no changes today. Labs been reviewed. Creatinine 5.20, BUN 114, sodium 127, potassium 4.7, calcium 8.6 Exam (Progress Note) - Constitutional Vitals: Period Temp Pulse Resp BP Sys/Braga Pulse Ox Last 24 Hr 97.4 F-99.3 F 50-80 16-20 106-148/56-67 87-99 Exam: Chest is fairly clear, but with decreased inspiratory excursion Heart with a lateral PMI and a grade 1.5/6 systolic ejection murmur left sternal border; there is a separate murmur that is heard above the aortic valve Abdomen is nontender and nondistended; bowel sounds are positive 4 Extremities with nothing to suggest acute deep venous thrombophlebitis Psychiatric oriented 3 presently Neurologic unchanged Plan: Continue present treatment. See orders. DNR status noted. Hospice evaluation noted. Results - Labs CBC & BMP: 02/26/17 04:31 02/27/17 05:39 Specialty Discharge - Follow Up or Referrals
--- NOTE | 2017-02-27 14:24 | Discharge Summary ---
Mike Ruiz Vanessa, RN, am scribing for, and in the presence of, Saad Powell MD 14 :16. Hospital Course - Hospital Course Hospital Course: Mr. Tyler, 86 year old WM, followed by Dr. Castelan. History of CAD, for which medical management was pursued. Severe mitral regurgitation, underwent mitral clip recently. He was admitted with chest pain and shortness of breath. Workup ruled out DVT, PE, ACS. Pericarditis, pleuritis was suspected, he had severe acute kidney injury. Echo showed worsened cardiomyopathy, ejection fraction 20%, the mitral regurgitation is still moderate to severe, after mitral clip. He had acute kidney injury on admission, oliguria, per renal. He is not a candidate for dialysis. He had hyperkalemia, which resolved with Kayexalate. Pulmonary was managing lung issues, with bronchodilators. On admission, pericarditic/pleuritic pain was suspected, there was no ACS. Unfortunately, due to severe acute kidney injury, management options were limited, prednisone was started and rapidly tapered. The pain resolved. He was pleasantly delirious for most of the hospital stay. He remained extremely weak and oliguric. Discussed risks and benefits of management options with patient and multiple family members. He has essentially end-stage renal disease, oliguria, and he is not a candidate for dialysis. We will set him up with home hospice. Initially, he was in a sinus rhythm, then later went into atrial fibrillation, which was asymptomatic, well controlled heart rate. Given his comorbidities and very limited prognosis, we deferred starting anticoagulation. 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 CODE STATUS was discussed, now he is DNR. He will need to follow-up with Dr. Castelan in 2 weeks. Check CBC, BMP/magnesium. 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 Specialty Discharge - Follow Up or Referrals Discharge Plan - Discharge Data Disposition: Hospice - Home Condition at Discharge: Guarded Discharge Diet: other (Renal diet) Activity: resume usual activities as tolerated Hygiene: no restrictions Weight Bearing at Discharge: full weight bearing Driving: not until seen by doctor Contact your physician if you experience:: fever over 101, Difficulty voiding, Redness or swelling, Nausea/Vomiting, Shortness of breath, Bleeding, pain uncontrolled by pain medications - Discharge Medications New Acetaminophen Tab [Tylenol Tab] 325 mg PO Q6H PRN #30 tablet PRN Reason: Pain Aspirin EC Tab 325 mg PO DAILY #30 tablet Gabapentin Cap/Tab [Neurontin Cap/Tab] 100 mg PO TID #90 capsule Metoprolol Tartrate Tab [Lopressor Tab] 25 mg PO BID #60 tablet metOLazone [Zaroxolyn] 10 mg PO DAILY #30 tablet predniSONE TAB [PredniSONE] 10 mg PO DAILY #3 tablet Continue Thyroid,Pork [[place] Thyroid] 30 mg PO QAM Nitroglycerin Sl Tab [Nitrostat] 0.4 mg SL Q5M PRN PRN Reason: Chest Pain Multivitamin [One Daily] 1 each PO BEDTIME Montelukast Tab [Singulair Tab] 10 mg PO BEDTIME Fluticasone Propionate [Flonase Allergy Relief] 1 spray BOTH NARES QAM Cyanocobalamin (Vitamin B-12) [Vitamin B-12] 1,000 mcg PO BID Lactobacillus Combo No.23 [Tyler Probiotic] 1 tablet PO BID Iron 18 mg PO BID Atorvastatin [Lipitor] 20 mg PO BEDTIME Rabeprazole Sodium 20 mg PO QAM Oxybutynin Chloride [Oxybutynin Chloride ER] 15 mg PO BEDTIME Aloe Vera 25 mg PO QAM Albuterol Sulfate 0.83 % RESP TX BID Isosorbide Mononitrate [Imdur] 30 mg PO QAM Cholecalciferol (Vitamin D3) [Vitamin D3] 1,000 unit PO BID Discontinued Potassium Chloride 40 meq PO QAM Metoprolol Succinate 25 mg PO QAM Aspirin [Ecotrin] 81 mg PO QAM Furosemide 60 mg PO TID - Follow Up or Referral Follow Up: Mina Castelan MD [Physician] - 2 Weeks (check ekg, bmp/mg) - Forms/Instructions Instructions: Heart Healthy Diet (GEN), Coronary Artery Disease, Trailer Steerer (GEN) Exam - Constitutional Vitals: Period Temp Pulse Resp BP Sys/Braga Pulse Ox Last 24 Hr 97.4 F-99.3 F 50-80 16-20 106-148/56-67 87-99 General appearance: normal weight, under weight - Head Head exam: Present: normal inspection. Absent: contusion - Eye Eye exam: Absent: periorbital swelling, scleral icterus Pupils: Absent: dilated - ENT ENT exam: Present: normal external ear exam - Neck Neck exam: Present: normal inspection - Respiratory Respiratory exam: Present: clear to auscultation bilaterally. Absent: chest wall tenderness, wheezes - Cardiovascular Cardiovascular exam: Present: JVD, regular rate and rhythm, systolic murmur - GI/Abdominal GI/Abdominal exam: Present: normal bowel sounds. Absent: distended - Extremities Exam Extremities exam: Present: normal inspection, normal capillary refill. Absent: edema - Back Exam Back exam: Present: normal inspection - Neurological Exam Neurological exam: Present: alert, altered - Psychiatric Psychiatric exam: Present: normal affect, normal mood - Skin Skin exam: Present: normal color, warm. Absent: cyanosis Discharge Results Procedures and tests throughout hospitalization: Pending Orders 02/25/17 10:04 Osmolality,Urine Stat 02/28/17 04:00 XR chest 1V portable IN AM Basic Metabolic Panel IN AM 03/01/17 04:00 Basic Metabolic Panel IN AM Labs on day of discharge: Labs from last 24 hours 02/27/17 05:39 Sodium 127 L Potassium 4.7 Chloride 87 L Carbon Dioxide 26 Anion Gap 18.7 H BUN 114 H Creatinine 5.20 H GFR Calculation 9 BUN/Creatinine Ratio 21.00 H Glucose 104 Calculated Osmolality 290.2 Calcium 8.6 - Imaging and Cardiology Cardiology Procedure: image reviewed by me, report reviewed by me DS: Provider Consults: 02/22/17 10:31 Consult to Cardiac Rehabilitation [CONS] Routine Reason for Cardiac Rehabilitation: Risk Factor Modification Other Consult Comment: Evaluate and recommend 02/22/17 12:32 Consult to Dietitian [CONS] Routine Reason for Dietitian: Dietary Consult 02/23/17 10:32 Consult to Physician [CONS] Routine Comment: Consulting Provider: Naveen Samano Consulting Provider Notified: No When should Consulting Provider be notified: Now Person Notified: DR. SAMANO Date Notified: 02/23/17 Time Notified: 10:48 Consult Notification Comment: Patient known to you with COPD. He comes in short of breath and has pleuritic chest pain. He has not had an [place]. Lower extremity venous Dopplers are negative. VQ scan is low to intermediate probability, not normal. His physical exam now reveals a 3 component friction rub. I think the pleuritic chest pain is due to pericarditis. However, was a low to intermediate VQ scan I will wants your input--could he have both pericarditis and a pulmonary embolus? I would be reluctant to do a CT angiogram of the chest with his creatinine rising. Thank you for your help. 02/24/17 11:34 Consult to Physician [CONS] Routine Comment: Consulting Provider: Dwayne Pool Consult to Specialist Group: Nephrology When should Consulting Provider be notified: Now Person Notified: Emile Date Notified: 02/24/17 Time Notified: 13:40 02/25/17 10:03 Consult to Physician [CONS] Routine Comment: Acute on chronic renal failure. Leo Consulting Provider[place] [facility] [place] 02/27/17 10:27 Consult to Physical Therapy [CONS] Routine Reason for Physical Therapy: Evaluate and Treat 02/27/17 11:02 Consult to Case Mgmt/Social Srvs [CONS] Routine Reason for Case Mgmt/Social Srvs: Hospice Referral Expected date of discharge: 02/27/17 Andre Ruiz Attila, MD, personally performed the services described in this documentation, ascribed by Sasha Mckeon RN in my presence, and it is both accurate and complete [phone] .
[2017-02-27 16:31] VITALS: BP 109/60
== END 2017-02-27 17:06 | disposition hospice, home (50) | DRG 682 ==
LOC: EDUNIT# → EDBD → N.EDINP 07:07 → N.ED 07:07 → N.EDINP 12:05 → N.TELES 12:27
PROVIDERS: ADMIT Internal Medicine Cardiovascular Disease; ATTEND Internal Medicine Cardiovascular Disease